=== PATIENT | male | born 1940 | race Caucasian/White ===

== ENCOUNTER 2020-09-17 01:25 | Inpatient (IN) | payer MEDICARE, BC ==
[~2020-09-17] VITALS: Ht 175.3 cm; Wt 107.5 kg
[~2020-09-17 01:25] MED LIST: ADULT LOW DOSE81 MG PO; ATORVASTATIN CA40 MG PO; ATORVASTATIN CA80 MG PO; CARVEDILOL12.5 MG PO; CLOPIDOGREL75 MG PO; DIGITEK125 MCG PO; DILTIAZEM ER240 MG PO; ENALAPRIL MALEA10 MG PO; LISINOPRIL10 MG PO; METOPROLOL TART50 MG PO; WARFARIN SODIUM5 MG PO; XARELTO20 MG PO; ZETIA10 MG PO
[2020-09-17] MEDS ORDERED: ELIQUIS5 MG PO (03:45)
[2020-09-17] MEDS ORDERED: FUROSEMIDE40 MG PO (03:45)
--- NOTE | 2020-09-17 05:08 | NUR ---
BROUGHT pt FROM ED TO FLOOR. ABLE TO MOVE SELF FROM STRETCHER TO BED WITH 1PA. pt PLEASANT ORIENTED TO PERSON, PLACE, AND DATE. pt SLOW TO RESPOND WITH SOME QUESTIONS WHEN ASKED FOR SPECIFIC INFORMATION. DENIES SOB, OR PAIN AT THIS TIME. IV ABX INFUSED PER ORDERS (SEE MAR). pt HESITANT TO TAKE ORAL MEDS BUT DID TAKE THEM. ASSESSMENT DONE. pt LIVES HOME WITH . USES A CANE TO AMBULATE AT BASELINE. pt DENIES NEED TO URINATE WILL CALL WHEN READY. BED ALARM ON FOR SAFETY. TELE 8. CALL LIGHT WITHIN REACH.
--- NOTE | 2020-09-17 07:30 | NUR ---
Patient resting in bed, respirations even and non labored. Patient has no distress noted. Personal supplies and call light withiin reach.
--- NOTE | 2020-09-17 09:18 | NUR ---
PATIENT IN CHAIR. WHITE BOPARD UPDATED. REFUSES BREAKFAST AND WATER. CALL LIGHT WITHIN REACH. NOP FURTHER NEEDS AT THIS TIME
--- NOTE | 2020-09-17 09:22 | NUR ---
IN ROOM TO ASSESS REPORTED LEFT HIP SKIN BURNING PAIN. NOTHING NOTED ON ASSESSMENT. GIVEN TYLENOL FOR 9\\10 PAIN, STATES HE HAS NEVER HAD SHINGLES. WHILE MOVING PT TO CHAIR CCU NOTED HE HAD 5 BEATS OF VTACH. PT WAS ASYMPTOMATIC AND STATES HE HAS ALWAYS HAD AN "IRREGULAR" HR.
--- NOTE | 2020-09-17 12:36 | NUR ---
Tessalon jamie 100mg tab admin for cough. Pt tolerated a vanilla ensure well. No needs at this time. Personal supplies and call light within reach. Pt denies sob at rest.
--- NOTE | 2020-09-17 14:15 | NUR ---
MED REC COMPLETE
--- NOTE | 2020-09-17 14:57 | NUR ---
PATIENT UP IN CHAIR. REFUSES MEALS BUT ACCEPTS ENSURES. CALLM LIGHT WITHIN REACH. NO FURTHER NEEDS AT THIS TIME
--- NOTE | 2020-09-17 15:30 | NUR ---
Spoke with pt's as pt is pending covid and per nurses a poor his orian. They live in [place], pt has been weak for the last two weeks and his has had to help him into the house. She and her sister are also ill with the same symptoms. She states concern to be able to care for Art as she is ill also and is concerned she won't be able to assist him. He has been requiring increased help in the last two weeks due to weakness. This not his norm. Encouraged to find someone to assist them and she states she has someone she can call. I also encouraged her to get a covid test, their isn't anyone who can complete covid tests in [place]. Encouraged to isolate until Art's test is returned as they all had abd cramping, diarrhea, cough,change in taste and smell.
--- NOTE | 2020-09-17 16:47 | NUR ---
PATIENT IN BED RESTING. RTEFUSES DINNER AND FRESH WATER. ANDERSON SAAVEDRA NOTIFIED, CALL LIGHT IN REACH. NO FURTHER NEEDS
--- NOTE | 2020-09-17 17:43 | NUR ---
Last urine output was noted to be 110ml. Dr. Jiménez notified. VORD to encourage patient to drink more fluids. Will continue to monitor patient.
--- NOTE | 2020-09-17 18:45 | NUR ---
Provided patient with fresh water and an ensure. Pt denies sob at this time. Respiraitons are non labored. Attempted to assist patient with proning; pt verbalized he "cannot do that". Pt appears confused at times with directions and is delayed to verbalize a response to questions. Pt's speech remains clear with all conversations today. Encouraged patient to drink more fluids. Call light within reach.
--- NOTE | 2020-09-17 19:30 | NUR ---
RECEIVED REPORT AT 1900, PT WAS IN THE BATHROOM WITH A UX UI DESIGNER PRESENT. NO NEW CONCERNS WERE NOTED AT THAT TIME.
--- NOTE | 2020-09-17 21:00 | NUR ---
CALL LIGHT ANSWERED AT 2029. SBA TO SIDE OF BED FOR VOID. TREMORS VISIBLE. pt STATES "I DON'T FEEL GOOD". UNABLE TO DEFINE HOW pt FEELS. DENIES NAUSEA, HALLUCINATIONS. APPEARS ANXIOUS. 50 ML VOID IN URINAL. CIWA SCORE 10. UNABLE TO ADD SERIAL, ORIENTED TO SELF ONLY AT THIS TIME. PRIMARY RN JUAN IN ROOM. VS COMPLETE. RR 32. SPO2 86%, 2L OXYGEN BY NC APPLIED, WNL AT THIS TIME.
--- NOTE | 2020-09-17 21:30 | NUR ---
RR IN THE LAST HOUR HAS INCREASED TO 40. ALL LOBES HAVE EXP. WHEEZING PRESENT. PT ONLY ORIENTED TO SLEF. CAP REFILL ON ALL TOES AND FINGERS IS > 3SEC, RADIAL PULSES +2, PEDIS PULSES +1, NO EDEMA NOTED AND NO SKIN RASH NOTED EITHER, FIRST CIWA AT 2030 WAS A 10, 1MG IV ATIVAN WAS GIVEN, AT THIS TIME CIWA IS A 6. PT ALSO NOW ON 2L O2 NC. MD MAHAJAN WAS CALLED WITH UPDATE. PT TO TX TO CCU. WILL CALL JSAKARAN WITH UPDATE.
--- NOTE | 2020-09-17 22:00 | NUR ---
BEGAN 1:1 WITH pt. TRIED GETTING UP FROM BED, ASKED TO SIT AT THE SIDE OF THE BED, THIS HR ASSOCIATE CLOSE TO pt HE IS SHAKEY. pt SPEAKING OF THE PAST. GIVEN A FEW SIPS OF WATER.
--- NOTE | 2020-09-17 22:26 | NUR ---
PT TO TX TO ROOM 128 WHEN ROOM IS READY. PT NOW A 1:1 FOR NOW. SALES SERVICE TECHNICIAN FLOAT AT BEDSIDE.
--- NOTE | 2020-09-17 23:29 | NUR ---
pt IS CURRENTLY RESTING WITH EYES CLOSED, RESPERATIONS ARE @ 38 PER MIN.
--- NOTE | 2020-09-17 23:36 | NUR ---
PT AT THIS TIME IS SLEEPING. WAITING ON ROOM 128 TO BE CLEANED.
--- NOTE | 2020-09-17 23:47 | NUR ---
pt CAUSED BED ALARM TO GO OFF, WANTING TO SIT ON THE SIDE OF THE BED. THIS FLOOR ASSOCIATE IS CLOSE BY 1:1 DUE TO UNSTEADINESS.
--- NOTE | 2020-09-18 00:11 | NUR ---
PT TRANSFERRED FROM MED SURG TO CCU ROOM 128. TRANSFERRED FOR INCREASED CONFUSION PROBABLE ALCOHOL WITHDRAWAL, NEED FOR ONE ON ONE MONITORING. PT AWAKE, DENIES PAIN. RR 36, LUNGS HAVE SLIGHT WHEEZE THROUGHOUT, ALSO SOUND SOMEWHAT TIGHT. PT ORIENTED TO SELF ONLY. WHEN ASKED QUESTIONS ABOUT HIS ORIENTATION HE STATES "IM SOMEWHAT INCOMPREHNSIBLE" AND "I CANT QUITE PUT IT ALL TOGETHER RIGHT NOW". PT CAN STATE HIS NAME AND THAT HE LIVES IN [place] BUT DOES NOT KNOW CURRENT PLACE OR SITUATION. MILD TREMORS SEEN. PT OVERALL CALM AT THIS TIME BUT CONFUSED. RESTING IN BED, IN VIEW OF NURSES STATION WITH BED ALARM ON. DENIES TO TO VOID AT THIS TIME.
--- NOTE | 2020-09-18 00:35 | NUR ---
PT HAS REMAINED SOMEWHAT RESTLESS, RESP REMAIN 32-36, APPEAR LALBORED SPO2 REMAINS HIGH NINETIES WITH O2/2L IN PLACE, CONTINUES TO GIVE CONFUSED ANSWERS TO QUESTIONS. WHEN ASKED HOW HE IS DOING HE STATES "I CANT ANSWER TOO MANY QUESTIONS", ALSO STATES "IM A COMMIE" AND "IM JUST TRYING TO SHIMMY ON OVER TO THE BOOZE". 1MG IV ATIVAN GIVEN FOR CEWA OF 8 AT THIS TIME.
--- NOTE | 2020-09-18 02:35 | NUR ---
PT LYING WITH EYES CLOSED, OCCASIONALLY FIDGETING OR PICKING AT MONITOR BUT OVERALL CALM. KEEPING O2 IN PLACE, 2L/NC 97%. RR 32.
--- NOTE | 2020-09-18 02:50 | NUR ---
IN TO REPOSITION PT UP IN BED, LUNGS AUSCULATATED SOUNDING MORE DIMINISHED THAN ASSESSMENT 2 HOURS AGO WITH INCREASE IN WHEEZES THROUGHOUT ALL LUNGS BATISTA. RESP RATE HAS ALSO BEEN TRENDING UP INTO THE HIGHER 30'S WITH WORK OF BREATHING INCREASING WELL. PT CONTINUES TO BE FAIRLY CALM BUT CONFUSED AND SLIGHTLY RESTLESS. REPOSITIONED UP IN BED. ATTENDS CHANGED.
--- NOTE | 2020-09-18 02:50 | NUR ---
IN TO REPOSITION PT UP IN BED, LUNGS AUSCULTATED SOUNDING MORE DIMINISHED THAN ASSESSMENT 2 HOURS AGO WITH INCREASE IN WHEEZES THROUGHOUT ALL LUNG BATISTA. RESP RATE HAS ALSO BEEN TRENDING UP INTO THE HIGHER 30'S WITH WORK OF BREATHING INCREASING WELL. PT CONTINUES TO BE FAIRLY CALM BUT CONFUSED AND SLIGHTLY RESTLESS. REPOSITIONED UP IN BED AND PT HAD MODERATE INC VOID-ATTENDS CHANGED AND BARRIER CREAM APPLIED TO EXCORIATED AREA IN GROIN. BED ALARM ON, FINANCE BUSINESS PARTNER SITTING TO OBSERVE PT.
--- NOTE | 2020-09-18 03:00 | NUR ---
pt WAS INCONTINENT OF URINE, AND WAS TRYING TO CLIMB OUT OF BED. pt REPOSITIONED BY THIS TECHNICAL SALES ENGINEER AND ANDERSON ORDAZ, pt ALSO CHANGED AND OFFERED A SIP OF WATER AT THIS TIME. BED ALARM SET, pt RESTING IN SEMI FOWLERS POSITION. NOTHING NEEDED AT THIS TIME.
--- NOTE | 2020-09-18 03:38 | NUR ---
CALL TO DR MAHAJAN WITH CONCERNS OF PT'S RESP STATUS- INCREASING TACHYPNEA, WORK OF BREATHING AND WHEEZES. UPDATED REGARDING OTHER VS AND GENERAL STATUS. ORDER GIVEN TO TRIAL PT ON BIPAP. RT CALLED AND STARTING TO SET UP BIPAP.
--- NOTE | 2020-09-18 04:28 | NUR ---
PT WAS PLACED ON BIPAP AT 0355 AND GIVEN A NEB TX AND THE 0900 DOSE OF DECADRON. PT TOLERATING WEARING BIPAP WELL, WITHIN A MINUTE OF PLACING BIPAP PT FELL ASLEEP, APPEARED MORE COMFORTABLE WITH LESS LABORED RESP AND FELL ASLEEP AND HAS BEEN RESTFUL SINCE. DATABASE SUPPORT REMAINS SITTING IN VIEW OF PT.
--- NOTE | 2020-09-18 08:03 | NUR ---
REPORT RECEIVED FROM NIGHTSHIFT RN, WILL CONTINUE PLAN OF CARE.
--- NOTE | 2020-09-18 09:18 | NUR ---
PT LAYING IN BED SLEEPING WITH BIPAP ON. PT WOKEN AND PUT ON 2L NC AND WAS ABLE TO MAINTAIN SATURATIONS IN THE HIGH 80'S. PT RESPIRATIONS REMAINED IN HIGH 90'S THROUGH ASSESSMENT. PT DROWSY AND WAS FALLING ASLEEP AFTER BEING INTERACTED WITH OR ASKED QUESTIONS. PT INITIALLY ORIENTED ONLY TO SELF, , AND TOWN BUT NOT LOCATION. OVER TIME PT WAS LESS DROWSY BUT STILL SLOW TO RESPOND. AFTER REORIENTING PT WAS ABLE TO NAME LOCATION AND HOW HE CAME HERE BUT NOT WHY HE WAS HERE. PT AT TIMES ANSWERED INAPPROPRIATELY SUCH STATING "MIND CONTROL" BUT DID NOT EXPAND ON HIS STATEMENTS WHEN ASKED. PT HAD MILD TREMORS, REPORTS NO PAIN OR HEADACHES AND WAS GIVEN PO MEDICATIONS. PT IS WEAK AND HAS DIFFICULTY REPOSITIONING IN BED AND STATES HE IS TIRED. PT REPORTS NO NEEDS AT THIS TIME, NO PAIN, AND NO DIFFICULLTY BREATHING WHEN ASKED. PT PUT BACK ON BIPAP, FIO2 35%, RR WAS STILL IN THE 30'S, SPO2 MAINTAINING IN THE HIGH 90'S. WILL CONTINUE PLAN OF CARE.
--- NOTE | 2020-09-18 09:30 | NUR ---
Update from RN as pt is sleeping with Bipap in place. Sleeping better with Bipap and no alcohol withdrawal noted at this time.
--- NOTE | 2020-09-18 12:00 | NUR ---
DR. MAHAJAN IN TO SEE PT. AND ASSESS. NO NEW ORDERS GIVEN. PT BED BATH DONE AND LINENS CHANGED WITH THE HELP OF EM PHYSICIAN. PT MORE AWAKE, ALERT, AND ORIENTED THAN PRIOR AND ABLE TO HOLD A CONVERSATION. DURING LINEN CHANGE PT. WAS ABLE TO GET UP WITH SOME ASSISTANCE TO SIDE OF BED AND STAND UP. PT STATED HE WAS A BIT UNSTEAD ON HIS FEET BUT DID NOT FEEL LIGHTHEADED. PT WAS ABLE TO SHUFFLE WALK UP THE BED, SIT DOWN, AND REPOSITION HIMSELF. PT HAS VERY MILD TREMORS, WHEN ASSESSED. PT REPORTS NO HALLUCINATIONS, HEADACHES, OR FEELINGS OF NUMBNESS, TINGLING, HEAT WHEN ASKED. DURING THIS TIME PT WAS ABLE TO URINATE USING URINAL. PT AFEBRILE AND REPORTS NO PAIN. NO FURTHER NEEDS REPORTED WHEN ASKED. PT STATED HE WOULD GET SOME REST. BED IN LOWEST POSITION, PT LEFT ON 2L O2 NC, SPO2 IN THE 90'S, CALL LIGHT ON PT WITHIN REACH. WILL CONTINUE PLAN OF CARE.
--- NOTE | 2020-09-18 12:58 | NUR ---
assisted pt to stand at side of bed. bed linens changed, gown changed bed bath done. room picked up. vitals taken. call light with in reach no other needs at this time.
--- NOTE | 2020-09-18 14:20 | NUR ---
UNABLE TO VISIT WITH PT DUE TO PRECAUTIONS. WILL FOLLOW NEEDED
--- NOTE | 2020-09-18 16:50 | NUR ---
PT LAYING IN BED WATCHING TV. PT REPORTS NO PAIN AT THIS TIME, NO LIGHT HEADEDNESS, NO NUMBNESS, TINGLING. PT REPORTS NO HALLUCINATIONS WHEN ASKED. PT ORIENTED TO SELF, LOCATION, AND YEAR. PT STILL HAS ONLY MILD TREMORS. PT REPORTS NO DIFFICULTY BREATHING WHEN ASKED. PILLOWS PLACED UNDER PT ARMS. PT REPORTS NO NEEDS AT THIS TIME AND IS WAITING FOR HIS LUNCH ORDER. BED IN LOWEST POSITION, CALL LIGHT WITHIN REACH, WILL CONTINUE PLAN OF CARE.
--- NOTE | 2020-09-18 18:19 | NUR ---
1755 both nares swabbed for covid-19 without complication. sample taken to [facility] and [facility] notified this was a rapid test.
--- NOTE | 2020-09-18 18:32 | PATH ---
[facility] [address], [place] [address] Signed ORDERING PHYSICIAN: Raul Hwang MD PATIENT NAME: JOHNIE FERNANDEZ JR GENDER: Love : 1940 Prior History: No cases found. SPECIMEN(S): No Source Given MOLECULAR PATHOLOGY RESULTS: SARS-CoV-2 DETECTED ADDITIONAL NOTES.: The [place] Fusion SARS-CoV-2 Assay is a multiplex real-time PCR (RT-PCR) in vitro diagnostic test intended for the qualitative detection of RNA from SARS-CoV-2 from individuals who meet COVID-19 clinical and/or epidemiological criteria. In general, SARS-CoV-2 RNA can be detected during the acute phase of infection. Positive results indicate the presence of SARS-CoV-2 RNA. Clinical correlation with patient history and other diagnostic information is necessary to determine patient infection status. Positive results do not rule out bacterial infection or co-infection with other viruses. Negative results do not preclude SARS-CoV-2 infection and should not be used as the sole basis for patient management decisions. Negative results must be combined with other clinical observations, patient history, and epidemiological information. The [place] Fusion SARS-CoV-2 Assay is not yet approved or cleared by the [place] FDA. When there are no FDA-approved or cleared tests available, and other criteria are met, FDA can make tests available under an emergency access mechanism called an Emergency Use Authorization (EUA). The EUA for this test is supported by the Car Retarder Operator of Health and Human Service's (HHS's) declaration that circumstances exist to justify the emergency use of in vitro diagnostics for the detection and/or diagnosis of the virus that causes COVID-19. This EUA will remain in effect for the duration of the COVID-19 declaration justifying emergency of IVDs, unless it is terminated or revoked by FDA, after which the test may no longer be used. The [place] Fusion SARS-CoV-2 Assay is for use only under EUA PATIENT NAME: JOHNIE FERNANDEZ PATHOLOGY DATE OF : 44 REPORT #: [id number] PHYSICIAN: ALBERTO PATHOLOGY PCP: SHIVAM BRADLEY MD REPORT IS CONFIDENTIAL AND NOT TO BE RELEASED WITHOUT AUTHORIZATION [facility] [address] [place] [id number] Signed in laboratories certified under the Clinical Laboratory Improvement Amendments of 1988 (CLIA) to perform high complexity tests. [facility] is certified under CLIA to perform high complexity clinical laboratory testing. Chris Javier PERFORMING LABORATORY.: Molecular testing was performed by [facility] [address] [place] [address] (Clarity Developer: Brandon Gómez D.O.; CLIA#: [id number]) Diagnostician: System Interface Pathologist Electronically Signed 09/18/2020 Copies: ~ PATIENT NAME: JOHNIE FERNANDEZ PATHOLOGY DATE OF : 44 REPORT #: [id number] PHYSICIAN: ALBERTO VASQUEZ PCP: SHIVAM BRADLEY MD REPORT IS CONFIDENTIAL AND NOT TO BE RELEASED WITHOUT AUTHORIZATION
--- NOTE | 2020-09-18 19:30 | NUR ---
REPORT RECIEVED FROM GLENN BARRON. PT IS AWAKE IN BED, 2L/O2 IN PLACE, DENIES NEEDS.
--- NOTE | 2020-09-18 20:40 | NUR ---
IN TO DO HS MEDS AND ASSESS PT. PT IS ALERT AND ORIENTED AT THIS TIME, ANSWERING QUESTIONS APPROPRIATELY. DISCUSSING HIS IN AN ANGRY MANNER, ALSO NOT HAPPY WITH "BEING STUCK HERE". ASSESSMENT DONE- RESP ONLY SLIGHTLY LABORED, SLIGHTLY SOB WITH TALKING OR MOVEMENT BUT OVERALL LOOKS MUCH INPROVED FROM LAST NIGHT. LUNGS AUSCULTATED- NO WHEEZES HEARD, SOME CRACKLES IN THE BASES AND LEFT SIDE SLIGHTLY DIMINISHED. O2/2L/NC IN PLACE AND SPO2 96%. DENIES PAIN OR OTHER NEEDS. HAS ALSO COMPLAINING ABOUT THE FOOD HERE STATES HE COULDNT EAT IT, OFFERED SNACK BUT REFUSES.
--- NOTE | 2020-09-18 21:47 | NUR ---
DR MAHAJAN CALLED AND INFORMED OF POSITIVE COVID TEST. PT ATTEMPTED TO VOID INTO URINAL, 50ML IN URINAL AND LARGE INC AMOUNT IN ATTENDS. PERICARE DONE AND NYSTATIN APPLIED TO GROIN. PT REPOSITIONED ONTO RIGHT SIDE, PRONING DISCUSSED WITH PT.
--- NOTE | 2020-09-18 22:38 | NUR ---
FIRST DOSE OF REMDESIVIR STARTED, DISCUSSED WITH PT.
--- NOTE | 2020-09-19 00:32 | NUR ---
PT CALLED TO SAY HE WAS INC. ATTENDS CHANGED, PT REPOSITIONED. PT HAS BEEN WIDE AWAKE, ENCOURAGED HIM TO SLEEP AND HE STATES "I HAVENT SLEPT IN A YEAR AND A HALF."
--- NOTE | 2020-09-19 02:10 | NUR ---
PT CONT TO BE AWAKE IN BED STILL.
--- NOTE | 2020-09-19 02:25 | NUR ---
PT HAS BEEN AWAKE AND SOMEWHAT RESTLESS. 1MG IV ATIVAN GIVEN AND PT AGREES TO TRY WEARING BIPAP. RESP LOOK SLIGHTLY MORE LABORED THE LAST FEW HOURS.
--- NOTE | 2020-09-19 02:54 | NUR ---
PT HAS BEEN WEARING BIPAP AND RESTING WITH EYES CLOSED FOR APPROX 30 MINUTES NOW. APPEARS TO BE SLEEPING, HR 75, SPO2 97%, RR 30. BED ALARM ON.
--- NOTE | 2020-09-19 03:20 | NUR ---
PT TOOK OF HIS BI-PAP. PT AT THIS TIME IS ONLY ORIENTED TO SELF ONCE AGAIN. PT HOWEVER IS WILLING TO PUT BI-PAP BACK ON.
--- NOTE | 2020-09-19 04:06 | NUR ---
PT TOOK BIPAP OFF, PLACED BACK ON O2/2L SPO2 98%.
--- NOTE | 2020-09-19 04:45 | NUR ---
SAT WITH PT AT LENGTH TALKINIG ABOUT HIS LIFE. SEEMS OVERALL ORIENTED AT THIS TIME. KNOWS [place]" AND IN THE HOSPITAL DISCUSSING HIS COVID ILLNESS. HAS BEEN SITTING ON ROOM AIR WITH SATS IN MIDNINETIES, SLIGHTLY LABORED WORK OF BREATHING, LUNGS STILL HAVE TO SOME COARSE SOUNDS IN BASES, DIM ON LEFT AND NO LONGER HAVE WHEEZES.
--- NOTE | 2020-09-19 06:44 | NUR ---
PT STANDING UP AT BEDISDE ON HIS OWN, DOES FOLLOW DIRECTIONS WHEN ASKED TO WAIT FOR NURSE AND SIT BACK DOWN. UP TO BSC WITH SBA TO HAVE A MED SIZED BOWEL MOVEMENT. WAS SLIGHTLY UNSTEADY WHEN TRANSFERRING FROM BSC TO CHAIR. PT NOW UP IN CHAIR ON ROOM AIR, WITH SATS 95% ON ROOM AIR. CALL LIGHT IN REACH.
--- NOTE | 2020-09-19 07:30 | NUR ---
Report received from Cceilia BARRON. Pt tolerated Bipap last night. Pt is now awake laying on couch, on room air. Sating 95%, RR in 20's, no accessory muscle use noted.
--- NOTE | 2020-09-19 09:18 | NUR ---
Pt asleep on couch this morning. Woke up for assessment and meds. Alert and oriented x4 but is at times forgetful. VSS. Pt currently sating 95% on RA, RR in mid 20's, crackles heard in mid left lobe, diminished in bases. HR and work of breathing increases with exertion. Pt remains in a fib. Attempts to use urinal to void but has coordination difficulty. 2 unmeasured voids in brief. 22 g in RFA and 20 G in LAC both patent and dressings intact. Pt is without complaint at this time and has no further needs. Refused breakfast, but drinking water and coffee. Call light within reach.
--- NOTE | 2020-09-19 10:54 | NUR ---
Update from Rn. Pt is up in room, remains on . Not ready for dc at this time.
--- NOTE | 2020-09-19 11:40 | NUR ---
PT UP TO USE URINAL. VOIDED 50 MLS OF DARIO URINE. NOON ASSESSMENT COMPLETED. LUNCH ORDERED. ENCOURAGING INTAKE OF PO FLUIDS AND FOOD. PT WANTS TO REMAIN ON COUCH. ENCOURAGED PT TO TRY BEING UP IN THE CHAIR OR PRONING IN BED. PT HAS REFUSED AT THIS TIME, BUT SAYS HE WILL GET IN BED FOR HIS BED BATH. CALL LIGHT WITHIN REACH. NO OTHER NEEDS AT THIS TIME.
--- NOTE | 2020-09-19 13:30 | NUR ---
Pt ate 100% of lunch. Aides in to do bedbath. Full linen change completed this morning. Pt incontinent, changed into new gown and brief. VS remain stable. HR increases w/ exertion. Work of breathing decreased with rest. Pt back on couch, refusing bed or chair. No other needs at this time. Call light within reach.
--- NOTE | 2020-09-19 13:52 | NUR ---
hung [place] and I gave pt. a bed bath, washed hair, changed gown. cleaned room. pt is now sitting on the couch. call light with in reach, no other needs at this time.
--- NOTE | 2020-09-19 14:10 | NUR ---
DUE TO PRECAUTIONS, I AM UNABLE TO VISIT WITH PT IN PERSON. WILL FOLLOW
--- NOTE | 2020-09-19 15:30 | NUR ---
Chuyita Michelle in to removed wedding ring d/t swelling and per pt request. Soap and water used for first attempt. Then umbilical tape used for 2nd attempt which was successful. Ring placed in sterile cup with pt label and placed on bedside table.
--- NOTE | 2020-09-19 15:45 | NUR ---
Pt up to use urinal, HR increased to 120-130 w/ activity. Pt denies SOB and and feeling palpitations. Work of breathing does seem slightly increased. MD orders to use ativan first if HR remains elevated after activity. HR decreased to 90's at rest. Pt voided 100 mls into urinal and had a urine soaked brief as well, brief changed. Pt remain afebrile. Denies nausea or pain. Says he would like to go home. 95% on room air, lung sounds clear BUL and diminished in bases, RR 22-26. Remains on couch. Call light within reach.
--- NOTE | 2020-09-19 17:07 | NUR ---
Pt had 2 episodes of vtach, 7 beats @ 1655 and 3 more beats @ 1702. Pt is asleep on couch. Visualized chest rise and fall, breathing unlabored. Mag 2.0 yesterday, has not been redrawn today. Potassium 4.3 this morning. Last BP @ 1623 144/[address] Jiménez notified @ 1706. No new orders given.
--- NOTE | 2020-09-19 17:45 | NUR ---
in to draw magnesium. Ordered by Dr. Jiménez. Drawn from right forearm/wrist w/ 22 g. Ordered pt's dinner and also brought in room, pt refused. Says he "just doesn't feel up to it." Pt up to use urinal and voided 150 mls clear yellow urine and ambulated 4-5 feet to chair. Tolerated well. HR stayed below 120. Reclined watching television. Pt is without complaint at this time. Call light within reach.
--- NOTE | 2020-09-19 19:30 | NUR ---
RECEIVED REPORT AT 1900, PT IN CHAIR WATCHING TV. NO CONCERNS WERE NOTED AT THAT TIME.
--- NOTE | 2020-09-19 20:47 | NUR ---
HR >100-125 WITH SLIGHT ACIVITY AND SO IS HIS RR. OTHER V/S ARE WDL OVERALL. UPPER LOBES HAVE INSP. AND EXPI. WHEEZING PRESENT WITH CRACKLES IN THE BASES. ABD HAS BOWEL TONES PRESENT. RADIAL PULSES +2, PEDIS PULSES +1. SLIGHT BLE EDEMA IS PRESENT ALSO. PT AT THIS TIME IS AAOX4. PT IS REFUSING BI-PAP FOR TONIGHT AND WISHES TO SLEEP ON THE COUCH. OVERALL STRENGTH +4. WILL CONTINUE TO MONITOR.
--- NOTE | 2020-09-19 20:59 | NUR ---
PT AT THIS TIME IS REFUSING BREATHING TREATMENTS FOR HIS WHEEZING. PT UP IN CHAIR WATCHING TV.
--- NOTE | 2020-09-19 22:15 | NUR ---
IN TO CHECK ON PT, AWAKENS EASILY, ASSISTED WITH STRAIGHTENING OUT BED LINENS. CONT TO DENY PAIN OR NAUSEA. BACK TO SLEEP.
--- NOTE | 2020-09-19 22:27 | NUR ---
PT AT THIS TIME IS SLEEPING ON THE COUCH. RR IS STILL ELEVATED IN THE 20'S BUT OTHER V/S ARE WDL. PT STILL ON RA. PT IS LAYING ON HIS SIDE. NO NEW CONCERNS NOTED AT THIS TIME.
--- NOTE | 2020-09-20 00:09 | NUR ---
PT SO FAR HAS REMAINED ALERT AND ORIENTED THIS SHIFT. PT STILL WANTS TO SLEEP ON THE COUCH. PT STILL REFUSES BI-PAP. IF PT IS STILL, ALL V/S ARE WDL ACTUALLY. WITH STANDING UP TO VOID, HR IS UP TO THE 140'S AT TIMES. AND RR IN THE LOW 30'S. URINE OUTPUT SO FAR IS ADEQUATE, BLE EDEMA IS UNCHANGED. ALL LOBES AT THIS TIME ARE VERY DIMINISHED. NO WHEEZING OR CRACKLES WERE HEARD. WILL CONTINUE TO MONITOR.
--- NOTE | 2020-09-20 02:15 | NUR ---
PT HAD A LARGE INCONTINENT VOID. PT WAS WASHED AND A NEW GOWN WAS PROVIDED. PT IS BACK ON COUCH.
--- NOTE | 2020-09-20 04:30 | NUR ---
AT THIS TIME ALL LOBES ARE DIMINISHED WITH CRACKLES IN THE BASES. PT HAS REMAINED AAOX4 ALL NIGHT AND SLEPT ON THE COUCH. URINE OUTPUT WAS ADEQUATE THIS SHIFT. HEART SOUNDS HAVE REMAINED DISTANT. OVERALL NO NEW CONCERNS WERE NOTED WITH THE THIRD SHIFT ASSESSMENT.
--- NOTE | 2020-09-20 05:31 | NUR ---
SINCE ABOUT 0430 HR HAS REMAINED >100. AT TIMES, EVEN WITH PT SITTING HIS HR GOES UP TO THE 150'S. PT DENIES ANY CHEST PAIN OR SOB. PT STILL ON RA. WILL CONTINUE TO MONITOR.
--- NOTE | 2020-09-20 07:30 | NUR ---
Report received, orders acknowledged. Patient sleeping on couch on left side, respirations even and unlabored. Patient on RA, SpO2 of 94%. Call light within reach.
--- NOTE | 2020-09-20 08:15 | NUR ---
Patient standing at side of couch, holding attends. RN into room. Patient steady on feet when standing still. Patient incontinent of urine, new gown, socks, and attends put on patient. HR increased into the 130-150's while standing, afib rhythm. Vital signs taken, assessment complete. HR decreased to the 70-80's when patient sits back down on couch. Patient oriented to location, event, and year. AM medications given, IV remdesivir infusing. Patient denies pain or nausea. Warm wipes provided for body wash, along with shower cap. Patient currently 96% on RA. No desaturations noted with activity, only increased HR. Patient ate 100% of breakfast, denies further needs at this time. Call light within reach.
--- NOTE | 2020-09-20 08:16 | NUR ---
Update from RN. Pt waves at me through the window. Per Rn pt remains off of 02. Pt is also oriented for the first. Pt is improving. Pt does have a run of tachycardia as I am leaving.
--- NOTE | 2020-09-20 09:25 | NUR ---
Dr. Jiménez in room to assess patient and discuss POC
--- NOTE | 2020-09-20 10:14 | NUR ---
Patient requests to lay down on couch, feeling "tired." Patient saline locked, IV remdesivir finished infusing. Warm blankets provided. Patient denies any further needs, call light within reach.
--- NOTE | 2020-09-20 11:30 | NUR ---
Call light on in patient room, patient incontinent of urine. Patient stands at side of couch and uses urinal for continued need to urinate. New attends provided. HR increases to the 130's with standing and the movement of putting attends on. Patient sits back down on couch, HR decreases to the 90's. Lunch ordered, patient denies further needs. Call light within reach.
--- NOTE | 2020-09-20 12:30 | NUR ---
Patient laying on couch, watching tv. Vital signs taken, assessment complete. Lunch delivered. Patient ate 100% of meal. Denies pain and nausea. HR ranges from 90-130's, based on movement, if patient sits up on the couch from a laying position. Patient denies needs at this time, call light within reach.
--- NOTE | 2020-09-20 13:19 | NUR ---
PT ON PRECAUTIONS, UNABLE TO VISIT WITH PT. INFORMED THAT PT HAS BEEN ON RM O2
--- NOTE | 2020-09-20 14:00 | NUR ---
Patient expresses boredom and frustration at being isolated at hospital. States "I don't see why I can't do all of this at home." Sat with patient and discussed importance of IV abx for left lung pneumonia and IV remdesivir for positive COVID. Patient agreeable to POC and remaining in hospital for treatment.
--- NOTE | 2020-09-20 15:45 | NUR ---
Patient sleeping on left side on couch, respirations even and unlabored. HR in the 70's. Several pauses of 2 second duration noted while patient sleeping. SpO2 in the mid-90's on RA. Call light within reach.
--- NOTE | 2020-09-20 16:36 | NUR ---
Patient wakes up to use urinal, incontinent of urine. This RN into the room to assist. New attends put in place. Vital signs taken, assessment complete. Crackles auscultated in the bases of the lung, patient using IS. Patient denies pain or nausea. Reports no appetite and does not want to have a dinner ordered. Will check back on patient later. Patient denies further needs at this time, call light within reach.
--- NOTE | 2020-09-20 17:45 | NUR ---
Patient sitting up on couch watching tv. Urinal emptied of 200 mls of yellow urine. Patient reports no appetite, continues to decline dinner. No further needs at this time, call light within reach.
--- NOTE | 2020-09-20 20:41 | NUR ---
PATIENT PROVIDED WITH COFFEE PER REQUEST. VS STABLE. PATIENT PLACED ON TELE WITH PULSE OX SINCE PATIENT LIKES TO LAY ON THE COUCH. PATIENT DISAGREES WITH EDUCATION ABOUT WHY HE IS CURRENTLY IN THE HOSPITAL. PATIENT IS POLITE BUT STATES "I WAS FINE UNTIL THE TIME I GOT HERE AND THEY JUST MAKE THIS STUFF UP FOR MONEY". ALLOWED PATIENT TO VERBALIZE FRUSTRATIONS. PATIENT RECIEVING IV ROCEPHIN, IV SITE WNL. TOLERATING ROOM AIR. DENIES ANY NAUSEA, SOB, ETC. CALL LIGHT IN REACH.
--- NOTE | 2020-09-20 21:53 | NUR ---
IV ABX FINISHED. SITE WNL, SL. PATIENT LAYING ON COUCH. DENIES ANY NEEDS. DOES NOT WANT LIGHTS TURNED DOWN DUE TO POOR VISION. CALL LIGHT IN REACH.
--- NOTE | 2020-09-21 00:53 | NUR ---
PATIENT APPEARS TO BE SLEEPING SOUNDLY ON COUCH. ALLOWED PATIENT TO REST. VS STABLE.
--- NOTE | 2020-09-21 01:57 | NUR ---
B\P AND TEMP DONE ON PT AND CHARTED. EMPTIED HIS GARBAGES AND HIS BSC. CHARTED I&OS. BLACK COFFEE GIVEN PER PT REQUEST. APPROPRIATE PPE WORN. PT NEEDS NOTHING MORE AT THIS TIME.
--- NOTE | 2020-09-21 02:00 | NUR ---
DIRECTOR FAMILY ASSISTED TO TAKE PATIENT'S VS. PATIENT IS ORIENTED. WHEN ASKED HOW HE FEELS HE STATES "I'M HERE". PATIENT APPEARS TO BE OVERALL IN A GOOD MOOD, MAKING JOKES AND TALKING AT LENGTH WITH STAFF. TOLERATING ROOM AIR. RESTING ON AND OFF ON THE COUCH. CALL LIGHT IN REACH.
--- NOTE | 2020-09-21 06:00 | NUR ---
MORNING LABS DRAWN. PATIENT IN GOOD SPIRITS. VS STABLE. PATIENT HAD SOME COFFEE BUT REFUSED ORDERING BREAKFAST.
--- NOTE | 2020-09-21 07:15 | NUR ---
Report received, orders acknowledged. Patient sitting up on couch on RA, SpO2 of 97%. HR ranging from 80's to low 100's. Patient waves hello through window, denies needs. Call light within reach.
--- NOTE | 2020-09-21 08:19 | NUR ---
took vitals cleaned room and floor. pt. washed face and hands with warm wash cloth. call light with in reach. no other needs at this time.
--- NOTE | 2020-09-21 09:30 | NUR ---
Patient sitting up on couch. Vitals taken, assessment complete. AM medications given. Patient denies pain, nausea, or SOB. Patient on RA. HR ranges from the 80-loww 100's at rest. BSC emptied. IV remdesivir infusing. Patient denies needs at this time, call light within reach.
--- NOTE | 2020-09-21 11:30 | NUR ---
Patient is sitting up on couch in room. Verbalizes desire to go home. Respirations remain even and unlabored. Remains on room air at this time.
--- NOTE | 2020-09-21 11:59 | NUR ---
PT UNDER PRECAUTIONS UNABLE TO VISIT. WILL FOLLOW
--- NOTE | 2020-09-21 14:56 | NUR ---
Patient laying in bed with 15L high flow oxygen in place. Lasix given. Patient reports breathing "feels better than earlier." RT by room to check on patient. Patient turns the tv on, denies further needs at this time. Call light within reach.
--- NOTE | 2020-09-21 15:16 | NUR ---
Patient sitting up on couch. 3 beats of vtach noted on the classroom monitor.
--- NOTE | 2020-09-21 15:45 | NUR ---
Sitting up on couch. Respirations even and unlabored. Remains on room air.
--- NOTE | 2020-09-21 16:33 | NUR ---
Patient sitting up on couch. Vital signs taken, assessment complete. Patient denies pain or nausea. Call light within reach.
--- NOTE | 2020-09-21 17:08 | NUR ---
Patient sleeping on couch, respirations even and unlabored. Call light within reach.
--- NOTE | 2020-09-21 20:08 | NUR ---
IN RM TO GET SOILED LINEN OFF FLOOR, TOOK DINNER TRAY THE PT WAS DONE WITH, NO FURTHER NEED AT THIS TIME
--- NOTE | 2020-09-21 20:20 | NUR ---
BROUGHT UP SANDWICH BOX FOR PT, RN TO PROVIDE TO PT WHEN THEY GO IN THE RM
--- NOTE | 2020-09-21 20:30 | NUR ---
PATIENT PROVIDED WITH EVENING MEDS AND A SNACK BOX. PATIENT IS IN GOOD SPIRITS. IV ABX STARTED. VS STABLE. PATIENT TOLERATING ROOM AIR. AAOX4.
--- NOTE | 2020-09-21 21:15 | NUR ---
IV ABX FINISHED. SITE WNL. PATIENT ATE ABOUT 50% OF HIS SNACK BOX. BSC EMPTIED. PATIENT PROVIDED WITH A WARM BLANKET AND IS SLEEPING ON THE COUCH AGAIN TONIGHT. REQUEST LIGHTS BE LEFT ON. CALL LIGHT IN REACH.
--- NOTE | 2020-09-21 22:33 | NUR ---
PATIENT APPEARS TO BE SLEEPING SOUNDLY ON THE COUCH. CALL LIGHT IN REACH. HR IN 70'S WITH O2 SAT 93% ON ROOM AIR.
--- NOTE | 2020-09-22 00:15 | NUR ---
PT WAS UP TO VOID, IN RM TO GET BLOOD PRESSURE, PT TOOK CARDIAC LEADS OFF, REFUSEING TO PUT BACK ON, STATES HE IS GOING HOME TODAY, RN INFORMED AT THIS TIME, WILL BE IN TO SET UP TELE WITH SPO2 MONITORING ONLY, ASKED PT IF HE WANTED THE COUCH PULLED OUT FLAT INTO A BED, PT STATES HE IS FINE SLEEPING IN THE COUCH IS, DENIES FURHTER NEEDS AT THIS TIME
--- NOTE | 2020-09-22 00:30 | NUR ---
PATIENT FRUSTERATED WITH LABELING MACHINE OPERATOR AT THIS TIME. PATIENT REFUSAL TO PUT LEADS BACK ON. WILL CONTINUE O2 MONITORING TOLERATED. HR HAS BEEN MORE REGULAR THIS SHIFT, LESS TACHY WITH ACTIVITY AND NO PAUSES. PATIENT IS TOLERATING ROOM AIR. AAOX4. SLEEPING OFF AND ON WITH LIGHTS AND TV ON. CALL LIGHT IN REACH.
--- NOTE | 2020-09-22 07:30 | NUR ---
REPORT RECIEVED. PATIENT IS RESTING ON COUCH. NO DISTRESS NOTED.
--- NOTE | 2020-09-22 08:15 | NUR ---
DR. MAHAJAN HERE TO SEE PATIENT. LABS TO BE DRAWN. ASSESSMENT DONE. TRANSFERRED TO BED IN ORDERS TO DRAW BLOOD. PATIENT IS REFUSING BREAKFAST. ROUTINE LABS TO BE DRAWN.
--- NOTE | 2020-09-22 09:00 | NUR ---
DANIEL JOSE. DISCHARGE ORDERS RECIEVED.
--- NOTE | 2020-09-22 10:00 | NUR ---
DISCHARGE ORDERS RECIEVED.
[2020-09-22] MEDS ORDERED: ELIQUIS5 MG PO (10:02)
[2020-09-22] MEDS ORDERED: DIGITEK125 MCG PO (10:02)
[2020-09-22] MEDS ORDERED: DEXAMETHASONE4 MG PO (10:03)
--- NOTE | 2020-09-22 10:44 | NUR ---
Called Lashell, spouse, and informed her patient has discharge orders and will need clothes. Verbalizes understanding and states she will arrive to pick him up sometime later today.
--- NOTE | 2020-09-22 12:00 | NUR ---
AWAITING RIDE, REFUSING LUNCH. HAS BEEN SITTING AT BEDSIDE. DENIES SOB OR PAIN.
--- NOTE | 2020-09-22 12:15 | NUR ---
PATIENT GETTING READY TO DISCHARGE. CALL LIGHT WITHIN REACH.
--- NOTE | 2020-09-22 12:30 | NUR ---
discharge instructions given.
--- NOTE | 2020-09-22 13:30 | NUR ---
patient DISCHARGED ACCOMP BY NURSING STAFF VIA W/C.
== END 2020-09-22 13:33 | disposition home or self-care (01) | DRG 177 ==
LOC: ED 01:25 → MS 01:28 → CCU 23:59
PROVIDERS: ADMIT Student in an Organized Health Care Education/Training Program; ATTEND Student in an Organized Health Care Education/Training Program
PROC: 5A09357 Assistance with Respiratory Ventilation, Less than 24 Consecutive Hours, Continuous Positive Airway Pressure (ICD-10-PCS; principal; 2020-09-18)
PROC: XW033E5 Introduction of Remdesivir Anti-infective into Peripheral Vein, Percutaneous Approach, New Technology Group 5 (ICD-10-PCS; 2020-09-18)
PROC: XW033E5 Introduction of Remdesivir Anti-infective into Peripheral Vein, Percutaneous Approach, New Technology Group 5 (ICD-10-PCS; 2020-09-19)
PROC: XW033E5 Introduction of Remdesivir Anti-infective into Peripheral Vein, Percutaneous Approach, New Technology Group 5 (ICD-10-PCS; 2020-09-20)
PROC: XW033E5 Introduction of Remdesivir Anti-infective into Peripheral Vein, Percutaneous Approach, New Technology Group 5 (ICD-10-PCS; 2020-09-21)
PROC: XW033E5 Introduction of Remdesivir Anti-infective into Peripheral Vein, Percutaneous Approach, New Technology Group 5 (ICD-10-PCS; 2020-09-22)
DX: U07.1 COVID-19 (principal); J12.89 Other viral pneumonia; J96.01 Acute respiratory failure with hypoxia; G93.41 Metabolic encephalopathy; F10.139 Alcohol abuse with withdrawal, unspecified; I25.2 Old myocardial infarction; I10 Essential (primary) hypertension; I48.0 Paroxysmal atrial fibrillation; Z66 Do not resuscitate; Z88.8 Allergy status to other drugs, medicaments and biological substances; Z95.5 Presence of coronary angioplasty implant and graft; Z87.891 Personal history of nicotine dependence; Z91.14 Patient's other noncompliance with medication regimen; Z79.899 Other long term (current) drug therapy; Z79.01 Long term (current) use of anticoagulants; Z79.82 Long term (current) use of aspirin
CPT/HCPCS: 71045; 80048; 80053; 80162; 81001; 83605; 83615; 83735; 83880; 84484; 85025; 85379; 85610; 87040; 87088; 94640; 94660; 99285-25; C9803; J0456; J0696; J1100; J2060; J3411; J7030; J7050; J7060; J7121; J8540; U0003

== ENCOUNTER 2022-02-28 13:20 | Emergency (ER) | payer MEDICARE, BC ==
[~2022-02-28] VITALS: Ht 175.3 cm; Wt 101.3 kg
[~2022-02-28 13:20] MED LIST changes: +DEXAMETHASONE4 MG PO; +ELIQUIS5 MG PO; +FUROSEMIDE40 MG PO
[2022-02-28] MEDS ORDERED: CHLORTHALIDONE25 MG PO (13:48)
[2022-02-28] MEDS ORDERED: D3-200050 MCG PO (13:49)
[2022-02-28] MEDS ORDERED: B COMPLEX1 EACH PO (13:50)
[2022-02-28] MEDS ORDERED: PREDNISONE20 MG PO (16:06)
== END 2022-02-28 16:41 | disposition home or self-care (01) ==
LOC: ED 13:20
DX: M54.42 Lumbago with sciatica, left side (principal); M16.12 Unilateral primary osteoarthritis, left hip; I48.91 Unspecified atrial fibrillation; I25.2 Old myocardial infarction; Z85.46 Personal history of malignant neoplasm of prostate; Z87.891 Personal history of nicotine dependence; Z88.8 Allergy status to other drugs, medicaments and biological substances; Z79.01 Long term (current) use of anticoagulants; Z79.899 Other long term (current) drug therapy
CPT/HCPCS: 73502; 99283-25; J7512

== ENCOUNTER 2022-05-16 07:40 | Day surgery (SDC) | payer MEDICARE, BC ==
[~2022-05-16] VITALS: Ht 175.3 cm; Wt 100.9 kg
[~2022-05-16 07:40] MED LIST changes: +B COMPLEX1 EACH PO; +CHLORTHALIDONE25 MG PO; +D3-200050 MCG PO; +PREDNISONE20 MG PO
--- NOTE | 2022-05-16 10:48 | NUR ---
05/16/22 1048 Verona Akins 1042 PATIENT ARRIVES TO PACU SLEEPING. RESP EVEN AND UNLABORED, MASK AT 6 LITERS. 1046 PATIENT AWAKENS WITH VERBAL STIMULI. RESP EVEN AND UNLABORED, MASK OFF. DENIES PAIN OR NAUSEA.
--- NOTE | 2022-05-17 12:17 | OR ---
[facility] [address] [place], [place] [address] Signed DATE OF OPERATION: 05/16/2022 SURGEON: Cara Patino MD PREOPERATIVE DIAGNOSES: 1. Constipation. 2. History of prostate carcinoma, status post radiation therapy. 3. Multiple medical problems including atrial fibrillation with anticoagulation, COPD, and history of myocardial infarction with stenting. 4. History of severe COVID disease two years ago. POSTOPERATIVE DIAGNOSES: 1. Diverticula of sigmoid and left colon. 2. Suspicious lesion, right mid colon. PROCEDURE: Colonoscopy to the cecum with mucosal lift/hot snare polypectomy as well as multiple cold biopsies of right colon lesion. ANESTHESIA: Intravenous sedation, propofol infusion; Shan Hollins CRNA INDICATIONS: A 81-year-old white man has numerous medical problems. He is a patient of Dr. Paniagua. He has never had colonoscopy in the past. He is formerly a patient of Dr. Dave. He has had constipation, but no blood per rectum and has no family history of colon cancer. He is referred by Dr. Paniagua for colonoscopy. He understands the risks of bleeding, infection, and perforation related to colonoscopy and wished to proceed. Notably, he has been off his Eliquis for few days anticipating procedure. FINDINGS: The prep was adequate. Complete colonoscopy was undertaken to the cecum. In the right mid colon was a polypoid, ulcerated, umbilicated lesion highly suggestive of malignancy. Mucosal lift excision of portion was accomplished, but the remaining portion was not amenable to such a technique and cold morcellation biopsies were obtained. I suspect likely this represents malignancy. The remaining colon showed only diverticulosis of the sigmoid. DESCRIPTION OF PROCEDURE: The patient was brought to the endoscopy suite and placed in lateral decubitus position Electronically Signed By: CARA PATINO MD 05/17/22 1217 PATIENT NAME: JOHNIE FERNANDEZ JR OPERATIVE REPORT DATE OF : 44 REPORT #: [id number] PHYSICIAN: CARA PATINO MD PCP: SANJAY PANIAGUA MD REPORT IS CONFIDENTIAL AND NOT TO BE RELEASED WITHOUT AUTHORIZATION [facility] [address], [place] [address] Signed given intravenous sedation with propofol infusional technique due to his advanced ASA grade. Digital rectal examination was normal. An Olympus video colonoscope was passed into the rectum and manipulated throughout the colon noting diverticula of the sigmoid and left colon. The scope was advanced beyond hepatic flexure. There was found to be initially noting a flat polypoid lesion in the right mid colon. It appeared relatively small overall. Using a sclerotherapy needle, spot tattoo ink was injected into the central portion of the lesion allowing for mucosal lift. Using hot snare polypectomy technique, the lesion was excised crisply. With various manipulations, it appeared that the lesion was more extensive than that initially noted. Indeed, there was an umbilicated appearing lesion in association with this and likely the portion excised was only the edge of the lesion. A Engel basket was used to grab the excised portion and the scope was withdrawn and the specimen offloaded. Reintroduction of scope was undertaken ultimately re-identifying the right mid colonic lesion. Close inspection showed the polypoid lesion to have an umbilicated central portion, possibly accentuated by the mucosal lift that had been previously performed. Multiple biopsies with cold morcellation technique were undertaken of the lesion to better characterize this. It was not completely excised to be sure. The scope was then advanced beyond the right mid colon to the cecum. The cecum appeared normal. Scope was withdrawn. Re-evaluation of the mid right colon lesion undertaken. There was no untoward bleeding. The scope was withdrawn and examination through the remaining colon showed only diverticulosis of the left colon and sigmoid. Retroflexed view of the rectum was normal. There was no evidence of radiation proctitis. The scope was removed. The patient was taken to the recovery room in good condition. CONCLUDING DIAGNOSIS: Highly suspicious lesion right mid colon. PLAN: If malignancy is identified, right colectomy will be necessary. If not, re-evaluation in the near future would be undertaken to additionally provide for mucosal lift, excision of the remaining polypoid, umbilicated lesion if possible. MD LIYAH Garcia/MODL Electronically Signed By: CARA PATINO MD 05/17/22 1217 PATIENT NAME: JOHNIE FERNANDEZ OPERATIVE REPORT DATE OF : 44 REPORT #: [id number] PHYSICIAN: CARA PATINO MD PCP: SANJAY PANIAGUA MD REPORT IS CONFIDENTIAL AND NOT TO BE RELEASED WITHOUT AUTHORIZATION [facility] [address] [facility] [place] [address] Signed /[id number] cc: Dr. Paniagua Copies: ~ Electronically Signed By: CARA PATINO MD 05/17/22 1217 PATIENT NAME: JOHNIE FERNANDEZ OPERATIVE REPORT DATE OF : 44 REPORT #: [id number] PHYSICIAN: CARA PATINO MD PCP: SANJAY PANIAGUA MD REPORT IS CONFIDENTIAL AND NOT TO BE RELEASED WITHOUT AUTHORIZATION
--- NOTE | 2022-05-22 15:28 | PATH ---
[facility] [address] [place] [address] Signed THIS IS AN ADDENDUM REPORT SPECIMEN(S): A MID ASCENDING/RIGHT COLON POLYP SPECIMEN(S): B MID ASCENDING/RIGHT COLON BIOPSY SPECIMEN SOURCE: A. MID ASCENDING/RIGHT COLON POLYP B. MID ASCENDING/RIGHT COLON BIOPSY CLINICAL HISTORY: Screening colonoscopy. Postoperative Diagnosis: Right colon suspicious polypoid lesion; diverticulosis. FINAL PATHOLOGIC DIAGNOSIS: A. 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 - See comment. B. Colon, mid ascending/right, biopsy: - Fragments of tubular adenoma with focus bordering on high-grade dysplasia. - Negative for high-grade dysplasia or malignancy. COMMENT: Regarding specimen A: As part of [employer] program, part A of this case was reviewed in consultation with another member of our pathology staff who agrees with the diagnosis. A diagnostic alert was initiated by Dr. Nascimento on 05/21/22. Mismatch repair (MMR) testing by IHC has been ordered and will be reported in an addendum. NAL:cml:C1NR MICROSCOPIC EXAMINATION: Histologic sections of all submitted blocks are examined by light microscopy. These findings, together with the gross examination, support the pathologic diagnosis. GROSS DESCRIPTION: Two specimens are received in two containers labeled with "AN." A. The specimen, labeled "AN, 1," and designated on the requisition "mid ascending/right polypectomy," is received in formalin and consists of two fragments, one red-brown polypoid piece and one PATIENT NAME: JOHNIE FERNANDEZ JR PATHOLOGY DATE OF : 44 REPORT #: [id number] PHYSICIAN: ALBERTO VASQUEZ PCP: SANJAY PANIAGUA MD REPORT IS CONFIDENTIAL AND NOT TO BE RELEASED WITHOUT AUTHORIZATION [facility] [address] [place], [place] [address] Signed pink-loredo tissue (0.2-1.1 cm in greatest dimension). The resection margin of the polypoid piece is inked blue, and the pieces are serially sectioned. The specimen is submitted entirely in cassette (A1). B. The specimen, labeled "AN, 2," and designated on the requisition "mid ascending/right biopsy," is received in formalin and consists of multiple fragments of pink-loredo tissue (0.2-0.3 cm in greatest dimension). The specimen is submitted entirely in cassette (B1). AC (under the direct supervision of a pathologist) The Gross Description was prepared using a voice recognition system. The report was reviewed for accuracy; however, sound-alike word errors, addition and/or deletions may occur. If there is any question about this report, please contact Client Services. PERFORMING LABORATORY: The technical component was performed by [facility], [address] [place] [id number] (CLIA# [id number]). [facility], [address] [place] [id number] (CLIA# [id number]). COMMENT: Tumor cells show no loss of nuclear expression of MMR proteins. This correlates with a low probability of microsatellite instability. However, if there is a high clinical suspicion for Liu syndrome (hereditary non-polyposis colorectal carcinoma syndrome) in this patient, additional testing should be considered. Please contact [facility] if such testing is indicated. NAL:cml ADDITIONAL NOTES: Immunohistochemical and/or in situ hybridization studies were performed on this case with the appropriate positive controls that react as expected. This test was developed and its performance characteristics determined by [facility]. It has not been cleared or approved by the U.S. Food and Drug Administration. The FDA has determined that such clearance or approval is not necessary. This test is used for clinical purposes. It should not be regarded as investigational or for research. [facility] is certified under the Clinical Laboratory Improvement Amendments of 1988 (CLIA) as qualified to perform high complexity clinical PATIENT NAME: JOHNIE FERNANDEZ PATHOLOGY DATE OF : 44 REPORT #: [id number] PHYSICIAN: ALBERTO VASQUEZ PCP: SANJAY PANIAGUA MD REPORT IS CONFIDENTIAL AND NOT TO BE RELEASED WITHOUT AUTHORIZATION [facility] [address] [place], [place] [address] Signed laboratory testing. REASON FOR ADDENDUM: To add results of additional testing. ADDENDUM PATHOLOGIC DIAGNOSIS: A. Colon, mid ascending/right, invasive adenocarcinoma, microsatellite instability testing by IHC: - MLH1: Intact nuclear expression. - MSH2: Intact nuclear expression. - MSH6: Intact nuclear expression. - PMS2: Intact nuclear expression. INTERPRETATION: Normal pattern. ADDENDUM MICROSCOPIC EXAMINATION: A: A panel of four antibodies is selected which will detect 95% of microsatellite unstable carcinomas. Testing is performed at the request of Jami Nascimento M.D. Block: A1. Recut HE slide is prepared from the block. The presence of neoplastic glands and non-neoplastic internal control glands or stroma is confirmed. Internal control cells for MLH1, MSH2, PMS2 and MSH6 are positive. Neoplastic gland cells show the following: - MLH1: Positive. - MSH2: Positive. - MSH6: Positive. - PMS2: Positive. NAL:cml Technical testing is performed at [facility] [place]. Professional interpretation [facility] by [facility], [address] [place] [address] (CLIA# [id number]). Diagnostician: Jami Nascimento MD Pathologist Electronically Signed 05/22/2022 Copies: ~ PATIENT NAME: JOHNIE FERNANDEZ PATHOLOGY DATE OF : 44 REPORT #: [id number] PHYSICIAN: [facility] PCP: SANJAY PANIAGUA MD REPORT IS CONFIDENTIAL AND NOT TO BE RELEASED WITHOUT AUTHORIZATION
== END 2022-05-16 11:15 | disposition home or self-care (01) ==
LOC: OPS 07:40 → DS 07:40 → OPS 09:00 → DS 09:00 → OPS 10:15 → DS 10:20 → OPS 11:15
PROVIDERS: ATTEND Surgery
PROC: 3E0H8KZ Introduction of Other Diagnostic Substance into Lower GI, Via Natural or Artificial Opening Endoscopic (ICD-10-PCS; 2022-05-16)
PROC: 0DBF8ZX Excision of Right Large Intestine, Via Natural or Artificial Opening Endoscopic, Diagnostic (ICD-10-PCS; principal; 2022-05-16 10:15)
DX: C18.2 Malignant neoplasm of ascending colon (principal); K57.30 Diverticulosis of large intestine without perforation or abscess without bleeding; I25.2 Old myocardial infarction; J44.9 Chronic obstructive pulmonary disease, unspecified; I48.91 Unspecified atrial fibrillation; Z85.46 Personal history of malignant neoplasm of prostate; Z92.3 Personal history of irradiation; Z86.16 Personal history of COVID-19; Z79.01 Long term (current) use of anticoagulants
CPT/HCPCS: 00811; 87502; 88305; 88341; 88342; J2704; J7121; U0003

== ENCOUNTER 2022-06-03 10:51 | Inpatient (IN) | payer MEDICARE, BC ==
[~2022-06-03] VITALS: Ht 175.3 cm; Wt 100.0 kg
[2022-06-09] MEDS ORDERED: FLUOROMETHOLONE5 ML OPTH (17:10)
[2022-06-09] MEDS ORDERED: LASIX40 MG PO (17:10)
[2022-06-09] MEDS ORDERED: FOLIC ACID1 MG PO (17:11)
[2022-06-09] MEDS ORDERED: CYCLOBENZAPRINE10 MG PO (17:11)
--- NOTE | 2022-06-10 07:34 | NUR ---
RK1004: PT DENIES PERFORMING BOWEL PREP, STATES "WAS NOT INFORMED THAT WE NEEDED TO DO." MD NOTIFIED AND PT CANCELLED AND ENCOURAGED TO CALL DR. PATINO'S OFFICE TO RESCHEDULE AT THEIR EARLIEST CONVENIENCE. PT UPSET BUT UNDERSTANDING, IV REMOVED WNL AND COBAN PRESSURE DRESSING PLACED. PT DC FROM DS RM 6 VIA WC TO PERSONAL VEHICLE HOME TO [place].
== END 2022-06-10 07:10 | disposition home or self-care (01) | DRG 376 ==
LOC: DSVR 06-10 05:30 → MS 06-10 07:30
PROVIDERS: ADMIT Surgery; ATTEND Surgery
DX: C18.3 Malignant neoplasm of hepatic flexure (principal); I48.91 Unspecified atrial fibrillation; I10 Essential (primary) hypertension; Z20.822 Contact with and (suspected) exposure to COVID-19; J44.9 Chronic obstructive pulmonary disease, unspecified; Z79.01 Long term (current) use of anticoagulants; Z79.899 Other long term (current) drug therapy; I25.2 Old myocardial infarction; Z85.46 Personal history of malignant neoplasm of prostate; Z95.5 Presence of coronary angioplasty implant and graft; Z86.16 Personal history of COVID-19
CPT/HCPCS: J0694; J7121

== ENCOUNTER 2022-06-12 10:17 | Inpatient (IN) | payer MEDICARE, BC ==
[~2022-06-12] VITALS: Ht 175.3 cm; Wt 100.0 kg
[~2022-06-12 10:17] MED LIST changes: +CYCLOBENZAPRINE10 MG PO; +FLUOROMETHOLONE5 ML OPTH; +FOLIC ACID1 MG PO; +LASIX40 MG PO
--- NOTE | 2022-06-17 12:27 | NUR ---
06/17/22 1227 Sheets,[place] 1214 PT ARRIVED TO PACU ON 6L VIA MASK ORAL AIRWAY IN PLACE. RESP EVEN AND UNLABORED. VSS. PT NONAROUSABLE.
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
--- NOTE | 2022-06-17 14:15 | NUR ---
PT SPITTING GRABS A KLEENEX AND ASSISTS TO COVER HIS MOUTH AND CLEAN IT UP. JUST MINUTES LATER PT IS SPITTING AGAIN. FRESH H20 OFFERED, INQUIRED IF HE NEEDED SOMETHING.....MOUTHWASH, DRINK? HE DOES NOT REPLY BUT MAKES EYE CONTACT AND SPITS TOWARDS THIS WRITERS FACE.
--- NOTE | 2022-06-17 14:20 | NUR ---
[facility] CALLED TO SAY THEY NEEDED ASSISTANCE. DR PATINO IN ROOM WITH MULTIPLE STAFF AND PT'S . PT PULLED OUT IV, THRASHING IN BED, THREATENING STAFF. DR PATINO VERBALLY ORDERED PT TO BE PLACED IN SOFT RESTRAINTS ON WRISTS. STAFF NOW CHARTING PER POLICY.
--- NOTE | 2022-06-17 14:23 | NUR ---
PT LEFT QUIET FOR THIS TIME, IS IN THE ROOM PT RESTING EYES CLOSED. RE-CHECKING VITAL SIGNS ATTEMPTED TO REORIENT PT. NOTIFIED HIM BP WAS BEING TAKEN HE REPLIES "NO" ASKED IF SOMETHING CAN BE DONE TO MAKE HIM MORE COMFORTABLE HE REPLIES "LEAVE" ENCOURAGE HIM TO ALLOW MONITOR ON HIS FINGER FOR HR AND 02 HE SAYS "NO" (AND MEANS IT) RESTRAINTS ARE IN PLACE PT IS NOT STRUGGLING. HANDS ARE OF NORMAL COLOR AND COOL THEY WERE COMING FROM ER. PT RESTING EYES CLOSED, OPENS EYES WHEN HANDS ARE TOUCHED MOVES HANDS.
--- NOTE | 2022-06-17 14:41 | NUR ---
PT RESTING IN BED EYES CLOSED AWAKENS TO TOUCH. CONTINUES TO BE UNCOOPERATIVE RN ATTEMPTS TO START A NEW IV. RESTRAINTS STILL IN PLACE ABLE TO PUT FINGER BETWEEN ARM AND RESTRAIN EASILY. CIRCULATION IN TACT.
--- NOTE | 2022-06-17 14:52 | NUR ---
PT SNORING NOW, BREATHING EVEN AND UNLABORED. NEW IV SITE ESTABLISHED FLUIDS INFUSING, PULSE OX INPLACE. CONTINUES RESTRAINED AT THIS TIME CAP REFILL LESS THAN 3 SEC BOTH UPPER EXTREMITIES RESTRAINTS FAIRLY LOOSE IN FACT.
--- NOTE | 2022-06-17 16:00 | NUR ---
STAFF HAVE BEEN SITTING 1/ WITH THIS PT SINCE RESTRAINTS APPLIED. HE IS SNORING AT THIS TIME APPEARS RELAXED. ASSESSMENT COMPLETED OPPORTUNITY PRESENTED SINCE ARRIVAL. INCISIONS VIEWED AT ARRIVAL, HEART SOUNDS ONLY NOW THAT HE IS SLEEPING.
--- NOTE | 2022-06-17 16:33 | NUR ---
PT RESPONDING APPROPRIATELY AND APPEARS COOPERATIVE. TAKES ORAL MEDICATIONS REPLIES "THANK YOU." SPOKE WITH HIM FOR A TIME AND REMOVED RESTRAINTS. PT CONTINUES RESTING. 02 ON 1LPM, BP HAS MAINTAINED IN APPROPRIATE RANGE, CPOX IN PLACE. BED ALARM SET, CALL LIGHT IN LAP.
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
--- NOTE | 2022-06-17 17:12 | NUR ---
PT CONTINUES RESTING EYES CLOSED AWAKENS TO VOICE, CONTINUES TO BE COOPERATIVE AND UNRESTRAINED
--- NOTE | 2022-06-17 18:15 | NUR ---
PT RESTING SOUNDLY AWAKENS TO VOICE TAKES SIPS OF H20 RETURNS TO RESTING EYES CLOSED
--- NOTE | 2022-06-17 19:00 | NUR ---
BEDSIDE REPORT FROM ALVINO BARRON, IV FUSING AT 85, MACIAS TO GRAVITY - PT SLEEPY WITH EYES CLOSED RESTING RESP EVEN, CPOX AT BEDSIDE WNL - RA.
--- NOTE | 2022-06-17 20:20 | NUR ---
ASSESSMENT, VITALS/I/O COMPLETE, PT ALERT AND ORIENTED, EYE DROPS PROVIDED TO LEFT EYE FOR COMFORT - PT TALKATIVE ABOUT SERVICE, DENIES PAIN OTHER THAN SORE. SCOPE SITES X5 WITH SLIGHT DRAINAGE ON THEM.
--- NOTE | 2022-06-17 21:12 | NUR ---
DC'D CPAP ORDER D/T INCORRECT REQUEST FROM STAFF FOR THIS PT TO HAVE CPAP, SWITCH BOARD NOTIFIED STAFF THAT THE BAG BELONGED TO ROOM 108, HOWEVER IT BELONGED TO ROOM 113.
--- NOTE | 2022-06-17 23:16 | NUR ---
PATIENT RATES PAIN AT A 4/10 IN HIS ABD, SCHEDULED TYLENOL GIVEN PER ORDER. PATIENT DENIES ANY FURTHER NEEDS. CALL LIGHT IN REACH.
--- NOTE | 2022-06-18 01:30 | NUR ---
ICE WATER REFILLED. CLEAR ENSURE APPLE FLAVORED PROVIDED. NO OTHER CARE NEEDS THIS TIME.
--- NOTE | 2022-06-18 03:01 | NUR ---
PT DECLINES PAIN MEDS, IV ABX FUSING WELL, PT SLEEPY, ABD INC WNL, MACIAS TO GRAVITY, CALL LIGHT IN REACH.
--- NOTE | 2022-06-18 06:46 | NUR ---
ASSISTED PT TO STAND AT THE BEDSIDE TO USE HIS URINAL. HE IS UNSTEADY AND REQUIRES ASSIST .
--- NOTE | 2022-06-18 06:50 | NUR ---
CORRECTION - SCOPE SITES TO ABD X6 ONE IS IN SKIN FOLD. PT GIVEN WARM BLANKET - OFFERED COFFEE AND FLUIDS - DECLINED - PT TALKATIVE ABOUT A NEPHEW WHO INJURED A SHOULDER - AND PT IS TALKING ABOUT RUNNING THROUGHT THE WINDOW AT DR OFFICE. HE IS IN GOOD SPIRITS WHILE VISITING WITH THIS NURSE AT BEDSIDE - BUT STATES HE IS UNHAPPY WITH HIS SURGERY - BUT CAN NOT TELL ME WHY? THEN HE STARTS ANOTHER CONVERSATION. PT DENIES PASSING MARCELO, AND DECLINES PAIN MEDS AT THIS TIME.
--- NOTE | 2022-06-18 07:04 | NUR ---
PT DECLINES TO SIT IN CH OR WALK, IS AT BEDSIDE - PT DECLINES.
--- NOTE | 2022-06-18 07:50 | NUR ---
Spoke with pt, he is mentally clearer today, knows he lives in [place], is able to state his wifes name and phone number. When asked about DME, he begins to tell me the schedule is awful and he is not happy with his Dr. He then states he's been here 3 days without food or coffee. He no longer has restraints in place. Plan remains for pt to dc to home with when cleared medically. Per , pt has had issues in the past following anesthesia and she forgot to pass this on.
--- NOTE | 2022-06-18 09:38 | NUR ---
Patient awake, alert and oriented x3, patient requesting to eat "real food", clear liquids provided per provider order. Patient reports he did not sleep well last night. Toradol 15mg IV admin with morning medications for pain. ABd lap sites are all closed, covered with dressing(s) CDI. No current needs at this time. Personal supplies and call light within reach.
[2022-06-18] MEDS ORDERED: PAIN RELIEF500 M1 PO (10:51)
--- NOTE | 2022-06-18 11:36 | NUR ---
This RN attempted to ambulate pt in hallway, pt declined. Patient reports he is fearful of falling due to chronic left leg instabilty-pt states he was supposed to have surgery to his left leg. Updated provider at this time.
--- NOTE | 2022-06-18 12:08 | NUR ---
Verbal order obtained from Dr. Yang to remove dennison catheter at this time.
--- NOTE | 2022-06-18 12:36 | NUR ---
MACIAS REMOVED PER ORDER. PT AGREEABLE TO GET OOB TO CHAIR FOR COFFEE. DIET ADVANCED AND FULL LIQUID TRAY ORDERED. PT IN PLESENT MOOD AT THIS TIME AND AGREEABLE WITH TREATMENT.
--- NOTE | 2022-06-18 13:04 | OR ---
[facility] [address] [place], [place] [address] Signed DATE OF OPERATION: 06/17/2022 SURGEON: Cara Patino MD PREOPERATIVE DIAGNOSIS: Right hepatic flexure adenocarcinoma. POSTOPERATIVE DIAGNOSIS: Right transverse colon adenocarcinoma. PROCEDURES: Laparoscopic extended right colectomy with extracorporeal end-to-side ileotransverse colostomy, prolonged, complicated, difficult. ANESTHESIA: General endotracheal, Lissa Lela, LOOPER OPERATOR and local 18 mL of 0.25% Marcaine with epinephrine. INDICATIONS: This 81-year-old white man is a patient of Dr. Carina Paniagua. He underwent colonoscopy by me on May 16, 2022. He has numerous medical problems including atrial fibrillation with chronic anticoagulation with Eliquis as well as COPD and history of myocardial infarction with stenting as well as severe COVID disease two years ago. Colonoscopy demonstrated diverticulosis of sigmoid and right distal colonic neoplasm suspicious for malignancy, confirming a focally invasive well-differentiated adenocarcinoma arising from a tubular adenoma with high-grade dysplasia. A CT scan performed showing suspicion of lesion in the region of hepatic flexure. There is no evidence of metastatic disease to the liver. Careful consideration of options of management has been undertaken. I have recommended an attempt at laparoscopic right colectomy with anastomosis, open if necessary. He understands as does his the risks of bleeding, infection, anastomotic failure, need for other indicated procedures and of course failure to cure the problem. They understand and wished to proceed. FINDINGS: The laparoscopy had no evidence of ascites or carcinomatosis. The liver, though fatty infiltrated, showed no sign of metastatic disease. The gallbladder was normal. The endoscopic tattoo dye that had been placed at the time of colonoscopy in May showed Electronically Signed By: CARA PATINO MD 06/18/22 1304 PATIENT NAME: JOHNIE FERNANDEZ JR OPERATIVE REPORT DATE OF : 44 REPORT #: [id number] PHYSICIAN: CARA PATINO MD PCP: CARINA PANIAGUA MD REPORT IS CONFIDENTIAL AND NOT TO BE RELEASED WITHOUT AUTHORIZATION [facility] [address] [place], [place] [address] Signed the lesion in question to be the right transverse colon essentially. An extended right hemicolectomy was performed with transection of the mid transverse colon with an end-to-side extracorporeal anastomosis performed. The duodenum was normal. Retroperitoneal structures were unharmed. There were no complications. DESCRIPTION OF PROCEDURE: The patient was brought to the operating room and given a general endotracheal anesthetic. A full bowel prep had been given including oral antibiotics. Sequential compression device stockings were used and heparin subcutaneously administered. He had been off his Eliquis for two days. A Brewer catheter was placed after satisfactory general endotracheal anesthesia, the abdomen was clipped and prepared with a chlorhexidine solution and draped sterilely. An infraumbilical incision was made and using an open Roxi cannula technique, Pneumoperitoneum achieved to a level of 14 mmHg with carbon dioxide gas. Intra-abdominal inspection showed no sign of ascites or carcinomatosis. The endoscopic tattoo was not immediately noted in the right colon. Further evaluation more cephalad required the placement of an epigastric 12 mm port and an additional 5 mm port in the right lower quadrant. Various manipulations were undertaken, ultimately identifying the tattoo adolfo which was a bit more distal in the colon than expected; it had been thought the lesion would be at the hepatic flexure proper, but it was a bit to the right-- truly in the transverse colon actually. An additional 5 mm port was placed in the left side of the abdomen in the upper portion. The camera was replaced to the epigastric port. Elevation of the cecum and appendix was undertaken and electrocautery used to free the fascia of Toldt and the white line of Toldt. The colonic structures were dissected away from the retroperitoneum with blunt and electrocautery dissection, maintaining the natural plane between the right meso colon and gerotas fascia. Dissection was carried as far superiorly and medially as reasonable ultimately identifying the duodenum. The table has been placed in a left side down trendelenburg position for that portion of the operation. The patient was then allowed to remain in the [id number] position, but the table placed in a reverse Trendelenburg position. Quite clearly, the lesion was not a hepatic flexure proper, but more in the transverse colon. A plane was developed Electronically Signed By: CARA PATINO MD 06/18/22 1304 PATIENT NAME: JOHNIE FERNANDEZ JR OPERATIVE REPORT DATE OF : 44 REPORT #: [id number] PHYSICIAN: CARA PATINO MD PCP: CARINA PANIAGUA MD REPORT IS CONFIDENTIAL AND NOT TO BE RELEASED WITHOUT AUTHORIZATION [address] [address] Signed between the omentum and the mesocolon and dissected free primarily with blunt and electrocautery dissection. Attachments posteriorly and inferiorly were carefully freed, ultimately identifying the duodenum once again. The colon by this point was rather bulky and manipulation required a placement of another left-sided 5 mm port. Ultimately, an area of transection beyond the mid transverse colon was deemed appropriate. The mesentery to this area was scored in the inferior aspect and an avascular plane noted to the right of the area of the superior mesenteric vascular arcade. The avascular plane was developed transversely. Dissection was carried cephalad to the area of transection for the mid transverse colon. This area was skeletonized. A few clips were applied to small vessels as necessary. Using an Endo BETY stapling device, the mid transverse colon was transected, two loads were required for this. Further dissection was undertaken freeing the right mesocolon. On tension, the middle colic vascular arcade could be well identified. Attention was returned to the transverse mesocolon; more than one blood vessel was seen to be supplying the transverse and right colon. These vascular pedicles was transected with the Endo BETY stapling device with vascular load as well. Ultimately, only the right colonic and the ileocolic vascular arcades were remaining. Electrocautery was used to dissect the fatty mesentery up to the ileocolic arcade. Two applications of the Endo BETY stapling device was used to transect this vascular arcade completely. There was no sign of bleeding. Approximately 5 cm or so from the ileocecal valve, the mesentery of the colon was dissected free, maintaining good arterial supply to the terminal ileum. The Endo BETY stapling device was once again used to transect the terminal ileum. The remnant of the left transverse colon and the terminal ileum was then gently grasped with the forceps and withdrawn together, designating where a tension free anastomosis would be possible. This proved to be in the mid right abdomen. Pneumoperitoneum was relieved and a transverse incision was made slightly lateral centered on the right rectus abdominis muscle. Dissection was carried through the subcutaneous tissue with electrocautery. The rectus sheath medially incised and the external oblique and internal and transversus abdominis layers similarly transected. The colonic specimen was delivered out of the abdomen. The laparoscopic instruments holding the terminal ileum and the remaining left Electronically Signed By: CARA PATINO MD 06/18/22 2444 PATIENT NAME: JOHNIE FERNANDEZ JR OPERATIVE REPORT DATE OF : 44 REPORT #: [id number] PHYSICIAN: CARA PATINO MD PCP: CARINA PANIAGUA MD REPORT IS CONFIDENTIAL AND NOT TO BE RELEASED WITHOUT AUTHORIZATION [facility] [address] [place] [place], [place] [address] Signed transverse colon was delivered out of the wound to allow for an extraabdominal anastomosis. Plans were made for anastomosis. It was deemed most appropriate to provide an end-to-side ileo transverse colonic anastomosis. The serosa of both limbs was identified and found to be viable. The staple line of the transverse colon was oversewn with interrupted 3-0 silk suture. An end-to-side ileotransverse colostomy was undertaken in a two-layer technique of interrupted 3-0 silk suture in the seromuscular layer and a 3-0 Vicryl in the mucosal layer. The anastomosis was widely patent. It appeared viable. A portion of the mesentery defect was reapproximated with interrupted 3-0 silk suture as far as reasonably possible though complete closure was not afforded at this point. The anastomosed segment was returned to the abdominal cavity. The transverse incision was reapproximated in layers of running 0-PDS both in the posterior rectus sheath and peritoneum as well as anterior rectus sheath and other layers. Irrigation was undertaken and 10 mL of 0.25% Marcaine with epinephrine was injected locally. Pneumoperitoneum was achieved and internal inspection was undertaken. The anastomosis appeared viable. There was no sign of untoward bleeding. Irrigation was undertaken. Excess irrigation fluid was suctioned free. The trocars removed under direct visualization showing no sign of bleeding. The infraumbilical fascial incision reapproximated with interrupted 0-Vicryl as was the epigastric 10 mm port. The skin was then closed with interrupted 3-0 Vicryl. Steri-Strips were applied to all wounds and a small Acticoat dressing applied to the extraction site in the right mid abdomen. The patient was ultimately extubated and transferred to the recovery room in good condition, having suffered no complication. Sponge, needle, and instrument counts reported as correct x3. The operation took 4 hours and would be considered complicated and prolonged but was accomplished safely. MD LIYAH Garcia/NATHENL /[id number] cc: Dr. Carina Paniagua Electronically Signed By: CARA PATINO MD 06/18/22 1304 PATIENT NAME: JOHNIE FERNANDEZ OPERATIVE REPORT DATE OF : 44 REPORT #: [id number] PHYSICIAN: CARA PATINO MD PCP: CARINA PANIAGUA MD REPORT IS CONFIDENTIAL AND NOT TO BE RELEASED WITHOUT AUTHORIZATION [address] [address] Signed Copies: ~ Electronically Signed By: CARA PATINO MD 06/18/22 1304 PATIENT NAME: JOHNIE FERNANDEZ JR OPERATIVE REPORT DATE OF : 44 REPORT #: [id number] PHYSICIAN: CARA PATINO MD PCP: CARINA PANIAGUA MD REPORT IS CONFIDENTIAL AND NOT TO BE RELEASED WITHOUT AUTHORIZATION
--- NOTE | 2022-06-18 13:13 | NUR ---
PT ALERT, APPEARS TO BE ALBERT. REPEATED SEVERAL TIMES REGARDING HAVING FRONT OFFICE AGENT VISIT. HE SAID YES, BUT CUSSES SOMETIMES FROM HIS YEARS. WILL HAVE FR DELMA VISIT. WILL FOLLOW
--- NOTE | 2022-06-18 14:50 | NUR ---
Patient tolerating full liquids well. Admin one tab percocet 7.5/325mg at this time with a snack. Patient is forgetful and a bit agitated this afternoon, he is wanting to go home he reports. Updated pt with plan for him to spend another night here in the hospital, pt receptive at this time. IV site remains patent. Fresh water provided.
--- NOTE | 2022-06-18 16:12 | NUR ---
This RN to room as pt exiting bed and pulled IV. Site WNL, wrapped in gauze/coban, IV catheter intact. New 20g IV started in R wrist/FA, pt tolerated well, IVF infusing WNL. Bed alarm in place.
--- NOTE | 2022-06-18 18:20 | NUR ---
Patient sitting up in bed watching tv, no distress. Patient tolerating full liquids well, denies nausea. Patient is voiding well post dennison removal. Patient close to RN station for monitoring. Patient remains forgetful and easily directable at this time. Bed alarm intact.
--- NOTE | 2022-06-18 19:13 | NUR ---
Patient's IV site is patent, fluids infusing per provider order. Patient is in pleasant mood, notably confused. Patient close to RN station, bed alarm intact. Patient updated with plan of care. Bedside report provided to ANDERSON Box. Dr. Yang updated at this time via phone as he called the unit to check on patient's status. Patient's updated twice this shift regarding patient status. to call tomorrow mid morning to get another update regarding pt plan of care.
--- NOTE | 2022-06-18 19:20 | NUR ---
REPORT RECEIVED FROM QUENTIN. PT IS CONFUSED TO LOCATION, SITUATION AND STAFF. REORIENTED PT . BED ALARM IS ON. CALLL LIGHT IN REACH.
--- NOTE | 2022-06-18 19:50 | NUR ---
PT BED ALARM SOUNDING, FOUND SITTING ON THE BED, ATTEMPTING TO STAND. NEEDED TO USE URINAL, SL UNSTEADY, ASSISTED, AND BACK TO BED, CALL LIGHT EXPLAINED TO PT, BED ALARM PLACED.
--- NOTE | 2022-06-19 00:10 | NUR ---
PT APPEARS TO BE RESTING QUIETLY IN HIS BED. CALL LIGHT IN REACH. BED ALARM IS ON.
--- NOTE | 2022-06-19 02:52 | NUR ---
PT. BED ALARM ACITVATED. PT. HAD INCONTINENT EPISODE. PT. BED CHANGED, PT. CLEANED UP, AND FRESH DEPEND PROVIDED. CALL LIGHT LEFT WITHIN REACH. NO OTHER IMMEDIATE NEEDS AT THIS TIME.
--- NOTE | 2022-06-19 03:05 | NUR ---
PT SET OFF BED ALARM TRYING TO GET UP TO VOID. ASSISTED PT TO STAND AT BEDSIDE AND USE THE URINAL. VOIDED 300 LIGHT CLEAR URINE. PT STOOD AT THE BEDSIDE AND WALKED IN PLACE, MOVING HIS FEET. PT NOTED HOW WEAK HE FEELS. HE WAS ASSISTED TO SIT AT THE BEDSIDE, ENCOURAGED TO DEEP BREATHE. PT RATES HIS ABD PAIN "SORE" AND DID NOT WANT ANY PAIN MEDS. BED ALARM IS ON. CALL LIGHT IS IN REACH.
--- NOTE | 2022-06-19 04:59 | NUR ---
PT. VITALS AND I/OS CHARTED. FRESH WATER PROVIDED. ROOM TIDIED. CALL LIGHT LEFT WITHIN REACH. BED ALARM SET. NO OTHER IMMEDIATE NEEDS AT THIS TIME.
--- NOTE | 2022-06-19 06:11 | NUR ---
pt currently up in chair with chair alarm. Was up to bathroom after bed alarm sounding, pt trying to get up to bathroom. sba fww to bathroom, unmeasured liquid stool, with voiding. Washed hands after encouragement, agreed to sit in chair, warm washcloth for face, comb for hair. warm blanket and call light on lap.
--- NOTE | 2022-06-19 09:43 | NUR ---
TO PT ROOM FOR MEDICATION ADMINISTRATION. PT IS UP TO CHAIR. ALERT, RESPIRATIONS EVEN AND REGULAR. CALL LIGHT WITHIN REACH. IV FLUIDS RUNNING.
--- NOTE | 2022-06-19 12:09 | NUR ---
TO PT ROOM TO CHECK ON PT. PT IS A/O, RESPIRATIONS EVEN AND REGULAR SITTING UP IN CHAIR AWAITING LUNCH. DENIES NEEDS OR COMPLAINTS ATT. IV FLUIDS RUNNING.
--- NOTE | 2022-06-19 12:55 | NUR ---
TO PT ROOM ASSISTED TO BATHROOM. PT AMBULATED WELL WITH WALKER.
--- NOTE | 2022-06-19 13:00 | NUR ---
GAGE FRANCOIS CARING FOR PT-REQUESTED A VISIT FROM . WILL MAKE HAPPEN
--- NOTE | 2022-06-19 18:21 | NUR ---
TO PT ROOM. BP 162/77. PT DENIES PAIN ATT. GOOD URINE OUTPUT TODAY WELL BM. AMBULATED IN ROOM. STEADY ON FEET WITH WALKER.
--- NOTE | 2022-06-19 19:29 | NUR ---
REPORT RECEIVED FROM GIGI BARRON. PT IS UP IN CHAIR. AFTER REPORT PT SET OFF CHAIR ALARM GETTING UP. REMINDED PT TO CALL AND SHOWED HIM THE CALLL LIGHT. ASSISTED HIM BACK TO BED. BED ALARM IS ON.
--- NOTE | 2022-06-19 20:40 | NUR ---
PT GETTING OOB, ASSISTED TO THE BATHROOM AND TO USE THE URINAL, PT MISSED, BACK TO BED, NEW SOCKS IN PLACE, BED ALARM SET
--- NOTE | 2022-06-19 21:25 | NUR ---
bed alarm going off, pt attempting to sit on edge of bed to throw gargabe in bedside garbage sack. assistance provided, pt back in bed and bed alarm resumed. call light in reach, no further needs or concerns verbalized.
--- NOTE | 2022-06-19 21:50 | NUR ---
PT GETTING OOB, UP TO THE BATHROOM 1PA FWW, URINAL USED, PT INCONT WELL, NEW GOWN AND ATTENDS IN PLACE, BACK TO BED, BED ALARM RESET
--- NOTE | 2022-06-19 22:29 | NUR ---
PT STATES HE IS COUGHING AND FEELS WARM. HE WANTS TO SIT UP IN THE CAHIR. ROOM TEMP IS 74 DEGEREES, TURNED DOWN TO 70. PT IS COUGHING UP CLEAR THIN SPUTUM. LUNGS ARE CLEAR BUT DIM. O2 SAT IS 98 5 ON ROOMAIR. PT'S ORAL TEMP IS 98.7. PT IS NOW UP IN THE CHAIR, ALARM IS ON. PT HAS HIS CALL LIGHT AND BEDSIDE TABLE WITH WATER, KLEENEX, TV CONTROL.
--- NOTE | 2022-06-19 23:09 | NUR ---
PT SET OFF CHAIR ALARM GETTING UP WITHOUT CALLING FOR HELP. HE WAS ASSISTED SAFELY BACK TO BED . REMINDED TO USE CALL LIGHT FOR ALL NEEDS. BED ALARM IS ON. CALLL LIGHT IN REACH.
--- NOTE | 2022-06-19 23:40 | NUR ---
PT GETTING OOB, ASSISTED UP TO THE TOILET 1PA FWW, BACK TO BED, NO FURHTER NEEDS AT THIS TIME
--- NOTE | 2022-06-20 00:06 | NUR ---
PT REPORTS PAIN IN HIS ABD THAT TYLENOL DID NOT RELIEVE. HE WAS GIVEN TORADOL 15 MG IVP FOR HIS PAIN. HE IS RESTING IN BEDE WATCHING TV. CALL LIGHT IN REACH. BED ALARM IS ON.
--- NOTE | 2022-06-20 00:51 | NUR ---
IN TO ASSIST RN WITH SETTING PT UP TO THE CHAIR, BLANKET PROVIDED, CHAIR ALARM IS SET, NO FURTHER NEEDS AT THIS TIME
--- NOTE | 2022-06-20 00:51 | NUR ---
PT STATES HIS SCIATIC PAIN IS KEEPING HIM AWAKE IT USUALLY DOES. HE WANTED TO SIT UP IN THE CHAIR. NEW SOCKS WERE PUT ON PT AND HE WAS ASSISTED UP TO THE CHAIR. CHAIR ALARM IS ON. PT HAS HIS ST AND WITH CALL LIGHT, WATER AND OTHER ITEMS.
--- NOTE | 2022-06-20 01:19 | NUR ---
PT SET OFF CHAIR ALARM TRYING TO GET UP TO GO BACK TO BED. STAFF ASSISTED PT SFELY BCAK TO BED. BED ALARM ON. CALLL LIGHT IN REACH. PT REMINDED TO CALL FOR ANY NEEDS.
--- NOTE | 2022-06-20 01:56 | NUR ---
BED ALARM GOING OFF, pt ATTEMPTING TO COUGH UP SPUTUM. pt BACK IN BED, BED ALARM RESUMED AND CALL LIGHT IN REACH. NO FURTHER NEEDS OR CONCERNS VERBALIZED, WILL MONITOR FOR CHANGES.
--- NOTE | 2022-06-20 02:35 | NUR ---
ALARM SET OFF, PT GETTING OOB, UP TO THE URINAL, SBA FWW, BACK TO BED, ALARM RESET, PT REMINDED TO CALL, NO FURTHER NEEDS AT THIS TIME
--- NOTE | 2022-06-20 03:35 | NUR ---
PT UP TO THE BATHROOM WITH THE URINAL, SBA FWW, BACK TO BED, BED ALARM RESUMED, PT REMINDED TO USE CALL LIGHT
--- NOTE | 2022-06-20 04:05 | NUR ---
PT IS GETTING UP, ASSISTED TO THE CHAIR, CHAIR ALARM SET, CALL LIGHT PROVIDED
--- NOTE | 2022-06-20 04:45 | NUR ---
PT UP TO THE TOILET, PT STATES HE HAD YELLOW LIQUID BM, BACK TO THE CHAIR, CHAIR ALARM SET
--- NOTE | 2022-06-20 05:42 | NUR ---
chair alarm going off, pt attempting to get up and stand pivot from chair to bed. pt educated on use of call light and bed alarm resumed. no additional needs or concerns, call light in reach.
--- NOTE | 2022-06-20 06:20 | NUR ---
BED ALARM SET OFF, PT SAYS HE IS FEELING STIFF, NEEDS TO GET UP, PT THEN IN TO VOID, BACK TO BED, BED ALARM SET
--- NOTE | 2022-06-20 06:47 | NUR ---
scheduled tylenol given for reported 5-6/10 back pain, see emar. bed alarm remains on for safety, call light in reach. no needs or additional concerns verbalized.
--- NOTE | 2022-06-20 07:36 | NUR ---
MORNING REPORT RECEIVED. PT REQUESTING TO SIT IN CHAIR. TRANSFERRED SELF WITH WALKER. HR 99. MORNING ASSESSMENT COMPLETED.
--- NOTE | 2022-06-20 08:50 | NUR ---
TO PT ROOM FOR MEDICATION ADMINISTRATION. PT UP IN CHAIR. RESPIRATIONS EVEN AND REGULAR. CALL LIGHT WITHIN REACH.
--- NOTE | 2022-06-20 09:52 | NUR ---
PT AMBULATED IN [place] WITH CANE X2 LAPS. PT STEADY ON FEET. NO SOB OR C/O PAIN. SITTING IN CHAIR ATT.
--- NOTE | 2022-06-20 11:00 | NUR ---
Spoke with pt and he wants to go home today. Asks I tell Dr. Yang he can discharge. Let pt know he will need to discuss with the Dr. Pt cont. to deny needs for discharge.
--- NOTE | 2022-06-20 11:26 | NUR ---
TO PT ROOM TO CHECK ON PT. PT IS ALERT, RESPIRATIONS EVEN AND REGULAR. HE IS ANXIOUS ABOUT WAITNING ON DISCHARGE. SITTING IN CHAIR. CALL LIGHT WITHIN REACH.
--- NOTE | 2022-06-20 14:20 | NUR ---
TO PT ROOM FOR ASSESSMENT. PT IS AGITATED ANTICIPATING DISCHARGE.
[2022-06-20] MEDS ORDERED: OXYCODON-ACETA1 EAC2 PO (15:22)
[2022-06-20] MEDS ORDERED: ELIQUIS5 MG PO (15:22)
[2022-06-20] MEDS ORDERED: ACETAMINOPHEN500 MG PO (15:23)
--- NOTE | 2022-06-20 16:10 | NUR ---
PT DISCHARGED TO HOME. IV REMOVED, CATHETER INTACT.
--- NOTE | 2022-06-21 11:57 | DS ---
[facility] [address] [place], [place] [address] Signed ADMISSION DATE: 06/17/2022 DISCHARGE DATE: 06/20/2022 REASON FOR ADMISSION: Hepatic flexure colon cancer for laparoscopic right colectomy. HISTORY OF PRESENT ILLNESS: This 81-year-old white man is a patient Dr. 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 CT scan has shown no evidence of distant metastatic disease and a CEA level is normal. He is admitted to undergo right colectomy preferably by a laparoscopic approach given his numerous comorbidities. PERTINENT PHYSICAL EXAMINATION: GENERAL: Large white man in no acute distress. CHEST: Clear. HEART: Irregularly irregular. The patient was off apixaban anticoagulant for three days preoperatively. EXTREMITIES: Without clubbing, cyanosis, or edema. ABDOMEN: Obese and soft but without sign of ascites. HOSPITAL COURSE: On June 17, 2022, he underwent laparoscopic extended right hemicolectomy with extracorporeal end-to-side ileotransverse colostomy, which was prolonged (4 hours). Postoperatively, he was noted to have acute delirium which was managed initially by Haldol and which passed rather quickly. We were advised that the patient has had similar such problems following anesthesia in the past, according to his . He was started on a clear liquid diet the night of operation, advanced to full and ultimately a regular diet which he tolerated well. By postop day #3, he is ambulating well, tolerating a regular diet, has had bowel movements and is ready for discharge. His wounds appear to be healing well. His pathology report is pending. DISCHARGE MEDICATIONS: Will include: 1. Percocet 7.5/325 1-2 p.o. q.6 hours p.r.n. pain #10. 2. Tylenol 1000 mg p.o. q. 6 hours p.r.n. pain #60, no refill. He will resume his usual medication of digoxin 125 mcg p.o. daily, chlorthalidone 25 mg p.o. daily, vitamin D2 2000 units one cap p.o. daily, cyclobenzaprine (Flexeril), 10 mg t.i.d. as needed for spasms, and we will resume his apixaban (Eliquis) 5 mg p.o. b.i.d. starting Thursday (one week following operation). Electronically Signed By: CARA PATINO MD 06/21/22 1157 PATIENT NAME: JOHNIE FERNANDEZ DISCHARGE SUMMARY DATE OF : 44 REPORT #: [id number] PHYSICIAN: CARA PATINO MD PCP: CARINA PANIAGUA MD REPORT IS CONFIDENTIAL AND NOT TO BE RELEASED WITHOUT AUTHORIZATION [facility] [address] [place], [place] [address] Signed DISCHARGE DIAGNOSES: 1. 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 2. Perioperative delirium (resolved). 3. Chronic atrial fibrillation, anticoagulated with Eliquis. FOLLOWUP PLAN: He will return to see me in approximately 4 weeks. He will return to the ongoing care of as well. Cara Patino MD JM/MODL /[id number] cc: Dr. Carina Paniagua Copies: ~ Electronically Signed By: CARA PATINO MD 06/21/22 1157 PATIENT NAME: JOHNIE FERNANDEZ DISCHARGE SUMMARY DATE OF : 44 REPORT #: [id number] PHYSICIAN: CARA PATINO MD PCP: CARINA PANIAGUA MD REPORT IS CONFIDENTIAL AND NOT TO BE RELEASED WITHOUT AUTHORIZATION
--- NOTE | 2022-06-23 12:32 | PATH ---
[facility] [address] [place], [place] [address] Signed SPECIMEN(S): A RT COLON AND PORTION OF TRANS COLON SPECIMEN SOURCE: A. RT COLON AND PORTION OF TRANS COLON CLINICAL HISTORY: Primary malignant neoplasm of hepatic flexure of colon. FINAL PATHOLOGIC DIAGNOSIS: Right colon and portion of transverse colon, segmental resection: - Three tubular adenomas with focal high grade dysplasia, negative for invasive carcinoma. - Benign vermiform appendix. - Approximately 14 lymph nodes, negative for metastatic carcinoma (0/14). COMMENT: As part of [facility]' Quality Improvement Program, this case was reviewed by another member of our pathology staff. JANGELIKA:DS:[facility]:C2NR MICROSCOPIC EXAMINATION: Histologic sections of all submitted blocks are examined by light microscopy. These findings, together with the gross examination, support the pathologic diagnosis. GROSS DESCRIPTION: The specimen, labeled "AN," and designated on the requisition "right colon and portion of transverse colon, primarily malignant neoplasm of hepatic flexure colon," is received in formalin and consists of a previously opened, 18.2 cm long, up to 8.6 cm circumference colonic segment with attached terminal ileum, appendix, and attached adipose tissue up to 4.2 cm wide. The distal colonic margin is closed by 8 4.2 cm long staple line which is removed and the underlying tissue is inked blue. The proximal terminal ileum margin is closed by a 3.2 cm long staple line which is removed and the underlying tissue is inked orange. The colonic serosa is loredo, smooth, glistening with a focal, 1.7 x 1.7 cm area of black tattoo inking that is 2.8 cm from the distal colonic margin. On the colonic mucosa is a loredo, centrally indented, ill-defined indurated, 1.7 x 0.9 x 0.5 cm polyp that is associated with the area of black tattoo inking. The polyp is 4.3 cm from the distal PATIENT NAME: JOHNIE FERNANDEZ JR PATHOLOGY DATE OF : 44 REPORT #: [id number] PHYSICIAN: ALBERTO VASQUEZ PCP: SANJAY PANIAGUA MD REPORT IS CONFIDENTIAL AND NOT TO BE RELEASED WITHOUT AUTHORIZATION [facility] [address] [place], [place] [address] Signed colonic margin, 4.3 cm from the nearest radial/vascular root margin, 13.1 cm from the ileocecal valve, 15.7 cm from the appendiceal orifice, and 16.9 cm from the proximal terminal ileum margin. The polyp grossly appears to involve the submucosa and abuts the muscularis. The polyp does not grossly appear to invade into or through the muscularis. A second, ill-defined, 1.7 x 0.5 x 0.5 m, loredo polyp is located, 3.6 cm from the first polyp. The polyp is 2.8 cm from the area of tattoo inking, 4.5 cm from the nearest radial/vascular root margin, 4.8 cm from the distal colonic margin, 11.2 cm from the ileocecal valve, 13.2 cm from the appendiceal orifice, and 13.8 cm from the proximal terminal ileum margin. The polyp grossly A8 third polyp is located 4.3 cm from the ileocecal valve, 6.4 cm from the appendiceal orifice, 7.1 cm from the second polyp, 7.9 cm from the nearest radial/vascular root margin, 8.4 cm from the third polyp, 8.8 cm from the proximal terminal ileum margin, and 11.5 cm from the distal colonic margin. The polyp grossly The remaining colonic serosa is loredo with usual folds and without an additional discrete mass/lesion. The radial/vascular root margin nearest the first 2 polyps is closed by a 1.7 cm long staple one which is removed and the underlying tissue is inked red. The radial/vascular root margin nearest the third polyp is closed by a 3.6 cm long staple and which is removed and the underlying tissue is inked black. The terminal ileum is 3.5 cm long, 2.3 cm in diameter, terminal ileum serosa is loredo, smooth, glistening. The terminal ileum mucosa is loredo with usual folds and without a discrete mass/lesion. The appendix is 5.7 cm long, 0.7 cm in diameter and the appendiceal serosa is loredo to brown with multiple focal areas of loredo to brown delicate adhesions. A transmural defect is not grossly identified. Fecalith are absent. The lumen contains brown, pasty material and is lined by loredo to brown, grossly unremarkable mucosa. The attached adipose tissue is removed, sectioned, and palpated for lymph nodes. 5 [id number]-[id number], partially fat replaced lymph and candidates from 0.5 up to 1.4 cm in greatest dimension are found. The attached adipose tissue is placed in lymph node revealer "Reveal, for further evaluation. After further evaluation, 13 additional pink-loredo, partially fat replaced, lymph node candidates from 0.2 up to 1.5 cm in greatest dimension are found. [employer] Systems [employer] sections are submitted as follows: PATIENT NAME: JOHNIE FERNANDEZ PATHOLOGY DATE OF : 44 REPORT #: [id number] PHYSICIAN: [facility] PCP: SANJAY PANIAGUA MD REPORT IS CONFIDENTIAL AND NOT TO BE RELEASED WITHOUT AUTHORIZATION [facility] [address] [place], [place] [address] Signed A1 appendix A2 proximal terminal ileum margin cut surface down A3 terminal ileum A4 ileocecal valve A5 grossly normal colonic mucosa A6 red inked radial/vascular root margin cut surface down A7 black inked radial/vascular root margin cut surface down A8-A9 distal colonic margin cut surface down A10-A11 first polyp including area of black tattoo inking A12 second polyp A13 third polyp A14 3 lymph node candidates in toto A15 one lymph node candidate in toto A16 one bivalved lymph node candidate A17 5 lymph node candidates in toto A18 4 lymph node candidates in toto A19 2 lymph node candidates in toto A 20 1 bisected lymph node candidate A21-A22 1 bisected lymph node candidate AI (under the direct supervision of a pathologist) The Gross Description was prepared using a voice recognition system. The report was reviewed for accuracy; however, sound-alike word errors, addition and/or deletions may occur. If there is any question about this report, please contact Client Services. PERFORMING LABORATORY: The technical component was performed by [facility], [address] [place] [id number] (CLIA# [id number]). Professional interpretation was performed by [facility], [address] [place] [id number] (CLIA#: [id number]). Diagnostician: Edgardo Duarte MD Pathologist Electronically Signed 06/23/2022 Copies: ~ PATIENT NAME: JOHNIE FERNANDEZ PATHOLOGY DATE OF : 44 REPORT #: [id number] PHYSICIAN: ALBERTO VASQUZE PCP: SANJAY PANIAGUA MD REPORT IS CONFIDENTIAL AND NOT TO BE RELEASED WITHOUT AUTHORIZATION
== END 2022-06-20 16:00 | disposition home or self-care (01) | DRG 330 ==
LOC: DSVR 06-17 05:45 → MS 06-17 07:30
PROVIDERS: ADMIT Surgery; ATTEND Surgery
PROC: 0D1L4Z4 Bypass Transverse Colon to Cutaneous, Percutaneous Endoscopic Approach (ICD-10-PCS; 2022-06-17)
PROC: 0DBL4ZZ Excision of Transverse Colon, Percutaneous Endoscopic Approach (ICD-10-PCS; principal; 2022-06-17 07:30)
DX: C18.3 Malignant neoplasm of hepatic flexure (principal); C18.4 Malignant neoplasm of transverse colon; I48.20 Chronic atrial fibrillation, unspecified; F05 Delirium due to known physiological condition; K57.30 Diverticulosis of large intestine without perforation or abscess without bleeding; J44.9 Chronic obstructive pulmonary disease, unspecified; I25.2 Old myocardial infarction; Z95.5 Presence of coronary angioplasty implant and graft; Z86.16 Personal history of COVID-19; K59.00 Constipation, unspecified; I48.91 Unspecified atrial fibrillation; I10 Essential (primary) hypertension; Z79.01 Long term (current) use of anticoagulants; Z85.46 Personal history of malignant neoplasm of prostate; Z79.899 Other long term (current) drug therapy; Z98.890 Other specified postprocedural states; Z86.79 Personal history of other diseases of the circulatory system
CPT/HCPCS: 00840; 36415; 80048; 83735; 85025; 88309; A9270; J0131; J0330; J0694; J1100; J1630; J1644; J1885; J2001; J2405; J2704; J2795; J3475; J7121

== ENCOUNTER 2023-09-12 09:11 | Emergency (ER) | payer MEDICARE, BC ==
[~2023-09-12] VITALS: Ht 175.3 cm; Wt 93.2 kg
[~2023-09-12 09:11] MED LIST changes: +ACETAMINOPHEN500 MG PO; +DILAUDID2 MG PO; +ONDANSETRON ODT8 MG PO; +OXYCODON-ACETA1 EAC2 PO; +PAIN RELIEF500 M1 PO
--- OUTSIDE RECORDS SUMMARY | 2023-09-12 09:16 | XMS ---
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 EKunal VISIT COUNT (12 MO.) 2 [facility] TOTAL 2 NOTE: Visits indicate total known visits. ED/UCC VISIT TRACKING (12 MO.) 09/12/2023 09:12 [facility] [place] TYPE: Emergency COMPLAINT: - CHEST INJURY 01/09/2023 13:29 [facility] [place] TYPE: Emergency COMPLAINT: - L HIP PAIN/ NO INJ DIAGNOSES: - Contact with and (suspected) exposure to COVID-19 - Old myocardial infarction - Other acute postprocedural pain - Other senior living (current) drug therapy - Pain in left hip - Personal history of nicotine dependence - Unspecified atrial fibrillation INPATIENT VISIT TRACKING (12 MO.) No inpatient visits to display in this time frame [email or web address]
[2023-09-12] MEDS ORDERED: BISOPROLOL FUMAR5 MG PO (09:30)
[2023-09-12 09:32] LABS: BASOPHILS 0.8 % (0-2); EOSINOPHILS 2.9 % (0-6); HEMATOCRIT 41.4 % (35.0-50.0); LYMPHOCYTES 15.6 % (24-44); MCH 32.4 (27-36); MCHC 33.7 g/dl (30-36); MCV 96.2 fl (81-99); MONOCYTES 10.5 % (0-12); NEUTROPHILS 70.2 % (39-80); PLATELET COUNT 258 K/uL (140-440); RBC 4.31 M/ul (4.3-5.7); RDW 15.8 (10.5-15.0)
[2023-09-12 09:53] LABS: ALBUMIN 3.9 g/dL (3.4-5.0); ANION GAP 11.1 (7-21); BILIRUBIN, TOTAL 0.6 ng/dL (0.2-1.0); BUN/CREATININE RATIO 20.33 (6.0-28.6); CALCIUM 9.9 mg/dL (8.5-10.1); CREATININE, SERUM 1.18 mg/dL (0.70-1.30); MAGNESIUM 1.8 mg/dL (1.8-2.4); POTASSIUM 4.1 mmol/L (3.5-5.1); PROTEIN, TOTAL 7.8 g/dL (6.4-8.2)
[2023-09-12] MEDS ORDERED: PERCOCET 5-3251 EACH PO (11:31)
[2023-09-12 12:40] VITALS: BP 134/72
--- NOTE | 2023-09-14 05:54 | EKG ---
[facility] [address] [facility] [place] [address] Signed Sinus rhythm with short SD with premature supraventricular complexes Left axis deviation Pulmonary disease pattern Incomplete right bundle branch block ST elevation, consider inferior injury or acute infarct ACUTE LA / STEMI Consider right ventricular involvement in acute inferior infarct Abnormal ECG No previous ECGs available Confirmed by JIN STEVENSON MD ([id number]) on 09/14/2023 5:54:09 AM Electronically Signed By: JIN STEVENSON 09/14/23 0554 PATIENT NAME: JIMJOHNIEFAIZA SETH Electrocardiogram DATE OF : 44 PHYSICIAN: JIN STEVENSON REPORT #: [id number] REPORT IS CONFIDENTIAL AND NOT TO BE RELEASED WITHOUT AUTHORIZATION
== END 2023-09-12 12:40 | disposition home or self-care (01) ==
LOC: ED 09:11
PROVIDERS: Family Medicine
DX: S22.31XA Fracture of one rib, right side, initial encounter for closed fracture (principal); I71.43 Infrarenal abdominal aortic aneurysm, without rupture; I45.10 Unspecified right bundle-branch block; I48.91 Unspecified atrial fibrillation; I25.2 Old myocardial infarction; Z87.891 Personal history of nicotine dependence; Z79.01 Long term (current) use of anticoagulants; Z79.899 Other long term (current) drug therapy; W06.XXXA Fall from bed, initial encounter
CPT/HCPCS: 36415; 71260; 74177; 80053; 83735; 84484; 85025; 93005; 93010; Q9967

== ENCOUNTER 2023-10-11 10:51 | Emergency (ER) | payer MEDICARE, BC ==
[~2023-10-11] VITALS: Ht 175.3 cm; Wt 95.9 kg
[~2023-10-11 10:51] MED LIST changes: +BISOPROLOL FUMAR5 MG PO; +PERCOCET 5-3251 EACH PO
--- OUTSIDE RECORDS SUMMARY | 2023-10-11 10:58 | XMS ---
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 - 2 Visits in 30 Days [address] PROVIDERS [address] Nurse Practitioner: Family Current PHONE: [phone] Rosanna has no Care Guidelines for this patient. Pawel VISIT COUNT (12 MO.) 3 [facility] TOTAL 3 NOTE: Visits indicate total known visits. 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 - Personal history of nicotine dependence - Unspecified atrial fibrillation - Unspecified right bundle-branch block 01/09/2023 13:29 [facility] [place] TYPE: Emergency COMPLAINT: - L HIP PAIN/ NO INJ DIAGNOSES: - Contact with and (suspected) exposure to COVID-19 - Old myocardial infarction - Other acute postprocedural pain - Other [facility]ci (current) drug therapy - Pain in left hip - Personal history of nicotine dependence - Unspecified atrial fibrillation INPATIENT VISIT TRACKING (12 MO.) No inpatient visits to display in this time frame [email or web address]
[2023-10-11 11:21] LABS: BASOPHILS 1.1 % (0-2); EOSINOPHILS 2.3 % (0-6); HEMATOCRIT 42.6 % (35.0-50.0); HEMOGLOBIN 14.2 g/dL (12.0-18.0); LYMPHOCYTES 14.6 % (24-44); MCH 32.2 (27-36); MCHC 33.2 g/dl (30-36); MCV 96.8 fl (81-99); PLATELET COUNT 243 K/uL (140-440); RDW 15.2 (10.5-15.0)
[2023-10-11 11:45] LABS: ALBUMIN/GLOBULIN RATIO 0.98 (1.1-2.4); ALKALINE PHOSPHATASE 97 U/L (46-116); ALT (SGPT) 15 U/L (14-59); ANION GAP 12.1 (7-21); AST (SGOT) 22 U/L (15-37); BILIRUBIN, TOTAL 0.5 ng/dL (0.2-1.0); CALCIUM 9.8 mg/dL (8.5-10.1); CARBON DIOXIDE 33 mmol/L (21-32); CHLORIDE 98 mmol/L (98-107); CREATININE, SERUM 1.29 mg/dL (0.70-1.30); DIGOXIN 0.8 ng/dL (0.9-2.0); GLOMERULAR FILTRATION RATE,EST 56 mL/min (>60); POTASSIUM 5.1 mmol/L (3.5-5.1); PROTEIN, TOTAL 8.1 g/dL (6.4-8.2); UREA NITROGEN 28 mg/dL (7-18)
[2023-10-11] MEDS ORDERED: ONDANSETRON ODT8 MG PO (13:37)
[2023-10-11 13:51] VITALS: BP 152/71
--- NOTE | 2023-10-12 05:47 | EKG ---
[facility] [address] [facility] [place] [address] Signed Atrial fibrillation with slow ventricular response Left axis deviation Right bundle branch block Abnormal ECG When compared with ECG of 12-SEP-2023 09:17, Atrial fibrillation has replaced Sinus rhythm Right bundle branch block has replaced Incomplete right bundle branch block ST less depressed in Lateral leads T wave inversion less evident in Lateral leads Confirmed by JIN STEVENSON MD ([id number]) on 10/12/2023 5:47:22 AM Electronically Signed By: JIN STEVENSON 10/12/23 0547 PATIENT NAME: JOHNIE FERNANDEZ Electrocardiogram DATE OF : 44 PHYSICIAN: JIN STEVENSON REPORT #: [id number] REPORT IS CONFIDENTIAL AND NOT TO BE RELEASED WITHOUT AUTHORIZATION
== END 2023-10-11 13:53 | disposition home or self-care (01) ==
LOC: ED 10:51
PROVIDERS: Emergency Medicine
DX: R42 Dizziness and giddiness (principal); I48.91 Unspecified atrial fibrillation; I25.2 Old myocardial infarction; Z87.891 Personal history of nicotine dependence; Z95.5 Presence of coronary angioplasty implant and graft; Z79.899 Other long term (current) drug therapy; Z79.01 Long term (current) use of anticoagulants
CPT/HCPCS: 36415; 70450; 71045; 80053; 80162; 83880; 84484; 85025; 93005; 93010; 99284-25; A9270